=== PATIENT | female | born 1980 | race Hispanic/Latino ===

== ENCOUNTER 2018-10-01 18:18 | Emergency (ER) | payer BC, OTHER ==
[2018-10-01 20:16] LABS: Absolute Lymphocytes (CBC) 1.8 K/uL (0.7-4.9); Absolute Monocytes 0.4 K/uL (0.1-1.3); Basophils % 0.5 % (0-1.3); Eosinophils % 1.4 % (0-4.4); Hematocrit 41.3 % (36.0-45.0); Lymphocytes % 21.2 % (15.3-44.8); MPV 8.8 fL (7.6-11.3); Monocytes % 4.9 % (3.3-12.3); RBC Red Blood Cell Count 4.58 M/uL (3.86-4.86)
[2018-10-01 20:29] LABS: ALT/SGPT 26 U/L (12-78); AST/SGOT 15 U/L (15-37); Albumin 3.6 g/dL (3.4-5.0); Alkaline Phosphatase 90 U/L (45-117); BUN Blood Urea Nitrogen 17 mg/dL (7-18); Bicarbonate 26 mmol/L (21-32); Bilirubin Direct < 0.1 mg/dL (0-0.2); Bilirubin Total 0.2 mg/dL (0.2-1.0); Glucose Level 121 mg/dL (74-106); Lipase 110 U/L (73-393); Potassium 3.8 mmol/L (3.5-5.1); Protein, Total 7.1 g/dL (6.4-8.2); Sodium Level 139 mmol/L (136-145)
[2018-10-01] MEDS ORDERED: FAMOTIDINE 20 MG/2 ML VIAL IV ONE (21:12)
[2018-10-01] MEDS ORDERED: MEPERIDINE HCL 25 MG/0.5 ML ONE (21:12)
[2018-10-01] MEDS ORDERED: PROMETHAZINE 25 MG/ML VIAL ONE (21:12)
--- NOTE | 2018-10-01 21:28 | RAD REPORT ---
EXAM DESCRIPTION: RAD - Abdomen 1 View (KUB) - 10/01/2018 9:19 pm CLINICAL HISTORY: ABD PAIN Pain COMPARISON: No comparisons FINDINGS: The bowel gas pattern is non-obstructive. No evidence of free air or pneumatosis. No suspi cious calcifications. Mild lumbar levoscoliosis. Cholecystectomy clips. IMPRESSION: Negative examination.
--- NOTE | 2018-10-01 22:01 | ER ---
Nurse's Notes [facility] Name: Lexie Gray Age: 38 yrs Sex: Female : 1980 Arrival Date: 10/01/2018 Time: 18:19 Bed 7 Private MD: Diagnosis: Abdominal and pelvic pain Presentation: 10/01 18:24 Presenting complaint: Patient states: my stomach just started hurting at 10 am this morning; i feel like my tummy is bloated; reports nausea; denies diarrhea;. Transition of care: patient was not received from another setting of care. Onset of symptoms was October 01, 2018. Risk Assessment: Do you want to hurt yourself or someone else? Patient reports no desire to harm self or others. Initial Sepsis Screen: Does the patient meet any 2 criteria? No. Patient's initial sepsis screen is negative. Does the patient have a suspected source of infection? No. Patient's initial sepsis screen is negative. Care prior to arrival: None. 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 - Social history:: Smoking status: Patient/guardian denies using tobacco. - Ebola Screening: : No symptoms or risks identified at this time. Screenin:00 Abuse screen: Denies threats or abuse. Nutritional screening: No deficits noted. tl2 Tuberculosis screening: No symptoms or risk factors identified. Fall Risk None identified. Assessment: 20:00 General: Appears in no apparent distress. uncomfortable, Behavior is calm, cooperative, tl2 appropriate for age. Pain: Complains of pain in abdomen and abdomen diffusely Pain does not radiate. Neuro: Level of Consciousness is awake, alert, obeys commands, Oriented to person, place, time, situation. Cardiovascular: Denies chest pain. Respiratory: Airway is patent Respiratory effort is even, unlabored, Respiratory pattern is regular, symmetrical. GI: Abdomen is round distended, Bowel sounds present X 4 quads. Abd is soft Abdomen is tender to palpation in right upper quadrant and left upper quadrant Reports bloating. : No signs and/or symptoms were reported regarding the genitourinary system. Derm: Skin is pink, warm \T\ dry. Vital Signs: 18:27 BP 127 / 76; Pulse 94; Resp 18; Temp 97.6(TE); Pulse Ox 100% on R/A; Weight 96.16 kg; ss Height 5 ft. 0 in. (152.40 cm); Pain 10/10; 19:30 BP 113 / 72; Pulse 96; Resp 18; Temp 98.1; Pulse Ox 98% on R/A; lp1 21:14 BP 114 / 69; Pulse 78; Resp 18; Pulse Ox 100% on R/A; tl2 22:50 BP 115 / 50; Pulse 83; Resp 18; Pulse Ox 100% ; Pain 2/10; tl2 18:27 Body Mass Index 41.40 (96.16 kg, 152.40 cm) ED Course: 18:19 Patient arrived in ED. as 18:26 Triage completed. ss 18:28 Arm band placed on left wrist. ss 19:38 Alejandro Chaney PA is PHCP. jr8 19:38 Natanael Villeda MD is Attending Physician. jr8 20:00 Patient has correct armband on for positive identification. Placed in gown. Bed in low tl2 position. Call light in reach. Side rails up X 1. Adult w/ patient. 20:00 Inserted saline lock: 22 gauge in right antecubital area, using aseptic technique. tl2 Blood collected. 20:00 No provider procedures requiring assistance completed. tl2 20:50 Shelly Manzo, CHANDU is Primary Nurse. tl2 21:19 XRAY KUB In Process Unspecified. EDMS 22:00 René Marley MD is Referral Physician. jr8 23:09 IV discontinued, intact, bleeding controlled, No redness/swelling at site. Pressure tl2 dressing applied. Administered Medications: 21:08 Drug: Demerol 25 mg Route: IVP; Site: right antecubital; tl2 22:00 Follow up: Response: No adverse reaction; Pain is decreased tl2 21:08 Drug: Promethazine 12.5 mg Route: IVP; Site: right antecubital; tl2 22:00 Follow up: Response: No adverse reaction; Nausea is decreased tl2 21:09 Drug: Pepcid 20 mg Route: IVP; Site: right antecubital; tl2 22:00 Follow up: Response: No adverse reaction; Pain is decreased tl2 Outcome: 22:00 Discharge ordered by MD. sung 23:09 Discharged to home ambulatory, with family. tl2 23:09 Condition: stable 23:09 Discharge instructions given to patient, family, Instructed on discharge instructions, follow up and referral plans. medication usage, Demonstrated understanding of instructions, follow-up care, medications, Prescriptions given X 3. 23:12 Patient left the ED. tl2 Signatures: Dispatcher [employer] Nelly Andujar Shelby, RN RN ss Agatha Porras RN RN lp1 Alejandro Chaney PA PA jr8 Shelly Manzo RN RN tl2 Corrections: (The following items were deleted from the chart) 18:28 18:27 Pulse 94bpm; Resp 18bpm; Pulse Ox 100% RA; Temp 97.6F Temporal; 96.16 kg; Height ss 5 ft. 0 in.; BMI: 41.4; Pain 10/10; ss 23:08 20:00 BP 115 / 50; Pulse 83bpm; Resp 18bpm; Pulse Ox 100%; Pain 2/10; tl2 tl2
--- NOTE | 2018-10-01 22:01 | EDPHYS ---
Physician Documentation [facility] Name: Lexie Gray Age: 38 yrs Sex: Female : 1980 Arrival Date: 10/01/2018 Time: 18:19 Bed 7 Private MD: ED Physician Natanael Villeda HPI: 10/01 21:57 This 38 yrs old Female presents to ER via Ambulatory with complaints of jr8 Abdominal Distention, Abdominal Pain. 21:57 The patient presents with abdominal pain that is diffuse. Onset: The symptoms/episode jr8 began/occurred acutely, today. The symptoms do not radiate. Associated signs and symptoms: none. The symptoms are described as burning, dull. Modifying factors: The symptoms are alleviated by nothing, the symptoms are aggravated by food. Severity of pain: At its worst the pain was moderate in the emergency department the pain is unchanged. The patient has experienced similar episodes in the past, a few times. The patient has not recently seen a physician. Stated that she has had this in the past. Nothing emergent noted on past labs and imaging per patient. Stated that she has gastritis and IBS. Could not tolerate pain . 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 - Social history:: Smoking status: Patient/guardian denies using tobacco. - Ebola Screening: : No symptoms or risks identified at this time. ROS: 21:57 Eyes: Negative for injury, pain, redness, and discharge, ENT: Negative for injury, jr8 pain, and discharge, Neck: Negative for injury, pain, and swelling, Cardiovascular: Negative for chest pain, palpitations, and edema, Respiratory: Negative for shortness of breath, cough, wheezing, and pleuritic chest pain, Back: Negative for injury and pain, MS/Extremity: Negative for injury and deformity, Skin: Negative for injury, rash, and discoloration, Neuro: Negative for headache, weakness, numbness, tingling, and seizure. 21:57 Abdomen/GI: Positive for abdominal pain, abdominal distension, Negative for nausea, vomiting, and diarrhea, abdominal cramps, anorexia, dysphagia, hematemesis, black/tarry stool, rectal pain, rectal bleeding, bowel incontinence, flatulence. Exam: 21:57 Eyes: Pupils equal round and reactive to light, extra-ocular motions intact. Lids and jr8 lashes normal. Conjunctiva and sclera are non-icteric and not injected. Cornea within normal limits. Periorbital areas with no swelling, redness, or edema. ENT: Nares patent. No nasal discharge, no septal abnormalities noted. Tympanic membranes are normal and external auditory canals are clear. Oropharynx with no redness, swelling, or masses, exudates, or evidence of obstruction, uvula midline. Mucous membranes moist. Neck: Trachea midline, no thyromegaly or masses palpated, and no cervical lymphadenopathy. Supple, full range of motion without nuchal rigidity, or vertebral point tenderness. No Meningismus. Cardiovascular: Regular rate and rhythm with a normal S1 and S2. No gallops, murmurs, or rubs. Normal PMI, no JVD. No pulse deficits. Respiratory: Lungs have equal breath sounds bilaterally, clear to auscultation and percussion. No rales, rhonchi or wheezes noted. No increased work of breathing, no retractions or nasal flaring. Back: No spinal tenderness. No costovertebral tenderness. Full range of motion. Skin: Warm, dry with normal turgor. Normal color with no rashes, no lesions, and no evidence of cellulitis. MS/ Extremity: Pulses equal, no cyanosis. Neurovascular intact. Full, normal range of motion. Neuro: Awake and alert, GCS 15, oriented to person, place, time, and situation. Cranial nerves II-XII grossly intact. Motor strength 5/5 in all extremities. Sensory grossly intact. Cerebellar exam normal. Normal gait. 21:57 Abdomen/GI: Inspection: obese Bowel sounds: active, all quadrants, Palpation: soft, in all quadrants, mild abdominal tenderness, in the abdomen diffusely, mass, is not appreciated, rebound tenderness, is not appreciated, voluntary guarding, is not appreciated, involuntary guarding, is not appreciated, no appreciated organomegaly, Indicators: McBurney's point is not tender, Hobson's sign is negative, Rovsing's sign is negative, Liver: tenderness, is not appreciated. Vital Signs: 18:27 BP 127 / 76; Pulse 94; Resp 18; Temp 97.6(TE); Pulse Ox 100% on R/A; Weight 96.16 kg; ss Height 5 ft. 0 in. (152.40 cm); Pain 10/10; 19:30 BP 113 / 72; Pulse 96; Resp 18; Temp 98.1; Pulse Ox 98% on R/A; lp1 21:14 BP 114 / 69; Pulse 78; Resp 18; Pulse Ox 100% on R/A; tl2 22:50 BP 115 / 50; Pulse 83; Resp 18; Pulse Ox 100% ; Pain 2/10; tl2 18:27 Body Mass Index 41.40 (96.16 kg, 152.40 cm) ss MDM: 19:39 Patient medically screened. jr8 21:59 Data reviewed: vital signs, nurses notes, lab test result(s), radiologic studies, plain jr8 films, and as a result, I will discharge patient. Data interpreted: Pulse oximetry: on room air is 100 %. Interpretation: normal. Counseling: I had a detailed discussion with the patient and/or guardian regarding: the historical points, exam findings, and any diagnostic results supporting the discharge/admit diagnosis, lab results, radiology results, the need for outpatient follow up, a family practitioner, a state manager, to return to the emergency department if symptoms worsen or persist or if there are any questions or concerns that arise at home. Response to treatment: the patient's symptoms have markedly improved after treatment. Special discussion: Based on the patient's Hx, exam, and Dx evaluation, there is no indication for emergent surgery or inpatient Tx. It is understood by the patient/guardian that if the Sx's persist or worsen they need to return immediately for re-evaluation. 10/01 19:38 Order name: Basic Metabolic Panel; Complete Time: 20:45 10/01 19:38 Order name: CBC with Diff; Complete Time: 20:45 10/01 19:38 Order name: Creatinine for Radiology; Complete Time: 20:45 10/01 19:38 Order name: Hepatic Function; Complete Time: 20:45 10/01 19:38 Order name: Lipase; Complete Time: 20:45 10/01 21:05 Order name: XRAY KUB; Complete Time: 21:45 10/01 19:38 Order name: IV Saline Lock; Complete Time: 20:49 jr8 10/01 19:38 Order name: Labs collected and sent; Complete Time: 20:49 8 Administered Medications: 21:08 Drug: Demerol 25 mg Route: IVP; Site: right antecubital; tl2 22:00 Follow up: Response: No adverse reaction; Pain is decreased tl2 21:08 Drug: Promethazine 12.5 mg Route: IVP; Site: right antecubital; tl2 22:00 Follow up: Response: No adverse reaction; Nausea is decreased tl2 21:09 Drug: Pepcid 20 mg Route: IVP; Site: right antecubital; tl2 22:00 Follow up: Response: No adverse reaction; Pain is decreased tl2 Disposition: 10/02 15:00 Co-signature as Attending Physician, Natanael Villeda MD I agree with the assessment and rafal plan of care. Disposition: 10/01/18 22:00 Discharged to Home. Impression: Abdominal and pelvic pain. - Condition is Stable. - Discharge Instructions: Abdominal Pain, Adult. - Prescriptions for Bentyl 20 mg Oral Tablet - take 1 tablet by ORAL route every 6 hours As needed; 20 tablet. Zofran 4 mg Oral Tablet - take 1 tablet by ORAL route every 12 hours As needed; 20 tablet. Tramadol 50 mg Oral Tablet - take 1 tablet by ORAL route every 8 hours as needed; 12 tablet. - Medication Reconciliation Form, Thank You Letter, Antibiotic Education, Prescription Opioid Use form. - Follow up: Private Physician; When: 2 - 3 days; Reason: Recheck today's complaints, Continuance of care, Re-evaluation by your physician. Follow up: René Marley MD; When: 2 - 3 days; Reason: Recheck today's complaints, Continuance of care, Re-evaluation by your physician. - Problem is new. - Symptoms have improved. Signatures: Dispatcher [employer] EDNatanael Meeks MD MD cha Smirch, Shelby, RN RN Alejandro Kumar PA PA [facility] Shelly Manzo RN RN tl2 Corrections: (The following items were deleted from the chart) 10/01 23:11 19:38 Urine Dipstick-Ancillary ordered. jr8 23:11 19:38 Urine Test ordered. jr8 tl2 23:12 22:00 10/01/2018 22:00 Discharged to Home. Impression: Abdominal and pelvic pain. tl2 Condition is Stable. Forms are Medication Reconciliation Form, Thank You Letter, Antibiotic Education, Prescription Opioid Use. Follow up: Private Physician; When: 2 - 3 days; Reason: Recheck today's complaints, Continuance of care, Re-evaluation by your physician. Follow up: René Marley; When: 2 - 3 days; Reason: Recheck today's complaints, Continuance of care, Re-evaluation by your physician. Problem is new. Symptoms have improved. jr8
[2018-10-01 23:25] VITALS: TEMP 98.1
[2018-10-01 23:26] VITALS: O2SAT 100
[2018-10-01 23:28] VITALS: BP 115/50
== END 2018-10-01 23:12 | disposition home or self-care (01) ==
LOC: ER 18:18
DX: R10.9 Unspecified abdominal pain (principal); R10.2 Pelvic and perineal pain
CPT/HCPCS: 36415; 74018; 80048; 80076; 83690; 85025; 96374; 96375; 99284; J2175; J2550

== ENCOUNTER 2019-04-12 10:31 | Emergency (ER) | payer BC ==
--- OUTSIDE RECORDS SUMMARY | 2019-04-12 10:33 | XMS REPORT ---
:1980 [facility] Address [address] [place] [address] Care Team Providers Name Role Phone Unavailable Unavailable Unavailable Payers Payer Name Policy Type Policy Number Effective Date Expiration Date Problems This patient has no known problems. Allergies, Adverse Reactions, Alerts Allergy Name Allergy Status Severity Reaction(s) Onset Inactive Treating Comments Type Date Date Clinician gasper DA Active U 2018-12 00:00:0 0 Medications This patient has no known medications. Results Test Description Test Time Test Comments Text Results Atomic Results Result Comments SURGICAL 2019-01-26 RUN SPECIMENS 14:45:00 DATE: 01/26/19 Zulay IRELAND *LIVE * PAGE 1 RUN TIME: 1445 Specimen Inquiry RUN USER: INTERFACE ALLIE ENT: NAIF SINGH LOC: YENNY U #: [id number] AGE/SX: 38/F ROOM: RE01/22/19[facility] DR: Derek Garcia MD : 78 BED: DIS: STATUS: [facility] [place] TLOC: SPEC #: [id number] RECD: 01/22/19 STATUS: [facility] #: [id number] JONG: 01/22/19 [facility] DR: Derek Garcia MD ENTERED: 01/22/19 SP TYPE: SURG OTHR DR: ORDERED: PATHGM4/2, PATH SPEC, H E STAIN/2 HISTOLOGY: TISSUE ID BLK PCS [place] LEV / PROCEDURE DISPOSITION ____ ___ ___ ___ ___ ANTRUM BIOPSY A 1 3 1 GE JUNCTION B 1 3 1 TISSUES: A. ANTRUM BIOPSY - Antrum Bx B. GASTRO-ESOPHAGEAL JUNCTION BIOPSY - GE Junction CLINICAL HISTORY GERD FINAL DIAGNOSIS A-ANTRUM, BIOPSY: - Antral and oxyntic type gastric mucosa with minimal chronic inflammation. - Negative for H. pylori organisms. B-GE JUNCTION, BIOPSY: - Squamous mucosa with mild to moderate chronic inflammation, occasional eosinophils and reactive epithelial changes. - Focal pancreatic acinar cell heterotopia. - Negative for intestinal metaplasia. GROSS DESCRIPTION A-ANTRUM: Two pieces of tissue which measure 2 mm each. Entirely submitted in a single cassette. B-GE JUNCTION: Three pieces of tissue which measure 2-3 mm each. Entirely submitted in a single cassette. RAB/eb MICROSCOPIC DESCRIPTION Microscopic performed. ------ Signed SIGNATURE ON FILE Carly Chavez MD 01/26/19 1445 END OF REPORT SURGICAL 2019-01-26 RUN SPECIMENS 14:45:00 DATE: 01/27/19 Zulay IRELAND *LIVE * PAGE 1 RUN TIME: 1438 Specimen Inquiry RUN USER: INTERFACE ALLIE ENT: NAIF SINGH LOC: YENNY U #: [id number] AGE/SX: 38/F ROOM: RE01/22/19REG DR: Derek Garcia MD : 78 BED: DIS: STAT[place]: [facility] [place] TLOC: SPEC #: [id number] RECD: 01/22/19 STATUS: [facility] #: [id number] JONG: 01/22/19 [facility] [address]: Derek Garcia MD ENTERED: 01/22/19 SP TYPE: SURG OTHR DR: ORDERED: PATHGM4/2, PATH SPEC, H E STAIN/2 HISTOLOGY: TISSUE ID BLK PCS [place] LEV / PROCEDURE DISPOSITION ____ ___ ___ ___ ___ ANTRUM BIOPSY A 1 3 1 GE JUNCTION B 1 3 1 TISSUES: A. ANTRUM BIOPSY - Antrum Bx B. GASTRO-ESOPHAGEAL JUNCTION BIOPSY - GE Junction ADDENDUM FINDINGS Addendum #1 Entered: 01/27/19-3091 This addendum is being issued to comment on the diagnosis for specimen (B), the GE junction biopsy. The findings of this biopsy are not entirely specific. However, they appear to be compatible with the clinical impression of reflux esophagitis (as noted in the endoscopic report). No morphologic evidence of eosinophilic esophagitis is identified. No intestinal metaplasia is identified. The original diagnosis is unchanged. Addendum Signed SIGNATURE ON FILE Carly Chavez MD 01/27/19 1438 CLINICAL HISTORY GERD FINAL DIAGNOSIS A-ANTRUM, BIOPSY : - Antral and oxyntic type gastric mucosa with minimal chronic inflammation. - Negative for H. pylori organisms. B-GE JUNCTION, BIOPSY: - Squamous mucosa with mild to moderate chronic inflammation, occasional eosinophils and reactive epithelial changes. - Focal pancreatic acinar cell heterotopia. - Negative for intestinal metaplasia. CONTINUED ON NEXT PAGE RUN DATE: 01/27/19 Zulay IRELAND *LIVE* PAGE 2 RUN TIME: 1438 Specimen Inquiry RUN USER: INTERFACE SPEC #: [id number] PATIENT: NAIF SINGH # [id number] (Continued) ------- GROSS DESCRIPTION A-ANTRUM: Two pieces of tissue which measure 2 mm each. Entirely submitted in a single cassette. B-GE JUNCTION: Three pieces of tissue which measure 2-3 mm each. Entirely submitted in a single cassette. RAB/eb MICROSCOPIC DESCRIPTION Microscopic performed. ------ Signed SIGNATURE ON Carly Wood Tabatha FORMAN 01/26/19 1445 END OF REPORT UR HCG QUAL 2019-01-22 06:25:00 Test Item Value Reference Range Comments UR HCG QUAL (test code=[id number]) NEGATIVE NEGATIVE
[2019-04-12] MEDS ORDERED: METOCLOPRAMIDE 10 MG/2mL INJ ONE (11:31)
[2019-04-12] MEDS ORDERED: DIPHENHYDRAMINE 50 MG/ML VIAL ONE (11:32)
[2019-04-12] MEDS ORDERED: KETOROLAC 30 MG/ML INJ ONE (11:32)
--- NOTE | 2019-04-12 11:43 | RAD REPORT ---
EXAM DESCRIPTION: CT - CTHCSPWOC - 04/12/2019 11:33 am CLINICAL HISTORY: Trauma, head and neck injury. PAIN COMPARISON: No comparisons TECHNIQUE: Axial 5 mm thick images of the head were obtained. Axial 2 mm thick images of the cervical spine were obtained with sagittal and coronal reconstruction images generated and reviewed. All CT scans are performed using dose optimization technique as appropriate and may include automated exposure control or mA/KV adjustment according to patient size. FINDINGS: CT HEAD WITHOUT CONTRAST: No acute hemorrhage, hydrocephalus or extra-axial collection is identified.No areas of brain edema or midline shift. The paranasal sinuses and mastoids are clear.The calvarium is intact. CT CERVICAL SPINE WITHOUT CONTRAST: No fracture or subluxation.Mild spondylosis at C5-6.No prevertebral soft tissues swelling is identifi ed. IMPRESSION: No acute intracranial or cervical spine findings.
--- NOTE | 2019-04-12 12:26 | EDPHYS ---
Physician Documentation [facility] Name: Lexie Gray Age: 39 yrs Sex: Female : 1980 Arrival Date: 04/12/2019 Time: 10:34 Bed 15 Private MD: ED Physician Natanael Villeda HPI: 04/12 12:18 This 39 yrs old Female presents to ER via Ambulatory with complaints of pm1 Headache. 12:18 The patient complains of pain to the right base of the skull. The patient describes the pm1 headache as aching. Onset: The symptoms/episode began/occurred 3 day(s) ago. Associated signs and symptoms: Pertinent positives: pain to right arm. Headache History: Denies prior headaches. The symptoms are alleviated by nothing. the symptoms are aggravated by movement, of right arm and neck. Moving head to right side. The patient has not experienced similar symptoms in the past. The patient has not recently seen a physician. 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 - Social history:: Smoking status: Patient uses tobacco products, smokes one-half pack cigarettes per day. - Ebola Screening: : No symptoms or risks identified at this time. ROS: 12:18 Constitutional: Negative for fever, chills, and weight loss, Eyes: Negative for injury, pm1 pain, redness, and discharge, ENT: Negative for injury, pain, and discharge. 12:18 Cardiovascular: Negative for chest pain, palpitations, and edema, Respiratory: Negative for shortness of breath, cough, wheezing, and pleuritic chest pain, Abdomen/GI: Negative for abdominal pain, nausea, vomiting, diarrhea, and constipation, Back: Negative for injury and pain, MS/Extremity: Negative for injury and deformity, Skin: Negative for injury, rash, and discoloration. 12:18 Neck: Positive for pain with movement, of the right trapezius, Negative for bony tenderness. 12:18 Neuro: Positive for headache, of the right base of the skull. Exam: 12:18 Constitutional: This is a well developed, well nourished patient who is awake, alert, pm1 and in no acute distress. Head/Face: Normocephalic, atraumatic. Chest/axilla: Normal chest wall appearance and motion. Nontender with no deformity. No lesions are appreciated. 12:18 Cardiovascular: Regular rate and rhythm with a normal S1 and S2. No gallops, murmurs, or rubs. Normal PMI, no JVD. No pulse deficits. Respiratory: Lungs have equal breath sounds bilaterally, clear to auscultation and percussion. No rales, rhonchi or wheezes noted. No increased work of breathing, no retractions or nasal flaring. Abdomen/GI: Soft, non-tender, with normal bowel sounds. No distension or tympany. No guarding or rebound. No evidence of tenderness throughout. 12:18 Skin: Warm, dry with normal turgor. Normal color with no rashes, no lesions, and no evidence of cellulitis. MS/ Extremity: Pulses equal, no cyanosis. Neurovascular intact. Full, normal range of motion. 12:18 Neck: External neck: tenderness, that is moderate, of the right trapezius, C-spine: vertebral tenderness, is not appreciated, Trachea: is midline with no obvious abnormalities, ROM/movement: Meningeal signs: are not present, Kernig's sign is negative, Brudzinski's sign is negative, nuchal rigidity, is not appreciated, Neck and base of right skull pain reproduced with moving head to the right and forward. 12:18 Back: normal spinal alignment noted, muscle spasm, is appreciated in the right trapezius, neck pain reproduced with movement of right arm. 12:18 Neuro: Orientation: is normal, Mentation: is normal, Cranial nerves: CN II- XII are normal as tested, Motor: is normal, moves all fours, Sensation: is normal, no obvious gross deficits, Gait: is steady, at a normal pace, without difficulty. Vital Signs: 10:45 BP 148 / 88; Pulse 86; Resp 16; Temp 97.9(TE); Pulse Ox 100% on R/A; Weight 96.16 kg; hb Height 5 ft. (152.40 cm); Pain 10/10; 12:19 BP 139 / 99; Pulse 105; Resp 17 S; Pulse Ox 100% on R/A; ca1 12:50 BP 132 / 93; Pulse 92; Resp 17 S; Pulse Ox 100% on R/A; ca1 10:45 Body Mass Index 41.40 (96.16 kg, 152.40 cm) hb MDM: 11:13 Patient medically screened. [facility] 12:15 Data reviewed: vital signs. pm1 12:15 Data interpreted: Pulse oximetry: on room air is 100 %. Interpretation: normal. pm1 Counseling: I had a detailed discussion with the patient and/or guardian regarding: the historical points, exam findings, and any diagnostic results supporting the discharge/admit diagnosis, radiology results, the need for outpatient follow up, to return to the emergency department if symptoms worsen or persist or if there are any questions or concerns that arise at home. 04/12 12:14 Order name: Urine Dipstick--Ancillary (enter results) 04/12 12:14 Order name: Urine --Ancillary (enter results) bd 04/12 11:22 Order name: CT Head C Spine; Complete Time: 11:51 pm1 04/12 11:22 Order name: IV Saline Lock; Complete Time: 12:20 pm1 04/12 11:22 Order name: Urine Dipstick-Ancillary (obtain specimen); Complete Time: 12:21 pm1 04/12 11:22 Order name: Urine Test (obtain specimen); Complete Time: 12:20 pm1 Administered Medications: 12:00 Drug: TORadol - Ketorolac 15 mg Route: IVP; Site: left antecubital; ca1 12:46 Follow up: Response: No adverse reaction; Pain is decreased ca1 12:05 Drug: Benadryl 25 mg Route: IVP; Site: left antecubital; ca1 12:46 Follow up: Response: No adverse reaction; Pain is decreased ca1 12:08 Drug: Reglan 10 mg Route: IVP; Site: left antecubital; ca1 12:46 Follow up: Response: No adverse reaction; Pain is decreased ca1 Disposition: 04/13 06:48 Co-signature as Attending Physician, Natanael Villeda MD I agree with the assessment and [facility] plan of care. Disposition: 04/12/19 12:25 Discharged to Home. Impression: Radiculopathy, cervical region, Muscle spasm of back. - Condition is Stable. - Discharge Instructions: Cervical Radiculopathy, General Headache Without Cause, Muscle Cramps and Spasms. - Prescriptions for Cyclobenzaprine 10 mg Oral Tablet - take 1 tablet by ORAL route every 8 hours As needed; 30 tablet. Diclofenac Sodium 75 mg Oral Tablet, Delayed Release (E.C.) - take 1 tablet by ORAL route 2 times per day As needed; 30 tablet. Tylenol- Codeine #3 300-30 mg Oral Tablet - take 2 tablets by ORAL route every 6 hours As needed; 20 tablet. - Medication Reconciliation Form, Thank You Letter, Antibiotic Education, Prescription Opioid Use, Work release form form. - Follow up: Emergency Department; When: As needed; Reason: Worsening of condition. Follow up: Private Physician; When: 2 - 3 days; Reason: Recheck today's complaints, Continuance of care, Re-evaluation by your physician. - Problem is new. - Symptoms have improved. Signatures: Dispatcher [employer] EDMS Natanael Villeda MD MD cha Marinas, Patrick, ALTERATIONS MANAGER ALTERATIONS MANAGER pm1 Jane Nagel RN RN Melony Pearce RN RN ca1 Corrections: (The following items were deleted from the chart) 04/12 12:54 12:25 04/12/2019 12:25 Discharged to Home. Impression: Radiculopathy, cervical region; ca1 Muscle spasm of back. Condition is Stable. Forms are Medication Reconciliation Form, Thank You Letter, Antibiotic Education, Prescription Opioid Use. Follow up: Emergency Department; When: As needed; Reason: Worsening of condition. Follow up: Private Physician; When: 2 - 3 days; Reason: Recheck today's complaints, Continuance of care, Re-evaluation by your physician. Problem is new. Symptoms have improved. pm1
--- NOTE | 2019-04-12 12:26 | ER ---
Nurse's Notes [facility] Name: Lexie Gray Age: 39 yrs Sex: Female : 1980 Arrival Date: 04/12/2019 Time: 10:34 Bed 15 Private MD: Diagnosis: Radiculopathy, cervical region;Muscle spasm of back Presentation: 04/12 10:43 Presenting complaint: Right sided headache that radiates to right neck and arm x 3 hb days. Denies nausea/photosensitivity/fever. Transition of care: patient was not received from another setting of care. Onset of symptoms was April 09, 2019. Risk Assessment: Do you want to hurt yourself or someone else? Patient reports no desire to harm self or others. Initial Sepsis Screen: Does the patient meet any 2 criteria? No. Patient's initial sepsis screen is negative. Does the patient have a suspected source of infection? No. Patient's initial sepsis screen is negative. Care prior to arrival: Medication(s) given: Motrin 800mg and Tylenol 500mg at 0400 today. 10:43 Method Of Arrival: Ambulatory hb 10:43 Acuity: RADHA 3 hb Triage Assessment: 11:06 Headache History: Denies prior headaches. General: Appears in no apparent distress. ca1 comfortable, Behavior is calm, cooperative, appropriate for age. Pain: Also complains of no other associated symptoms. Pain: Complains of pain in neck and scalp and right base of the skull and right occipital area and right temporal area and right side of the back of head and right frontal area Pain currently is 10 out of 10 on a pain scale. Quality of pain is described as throbbing, pulsating, Pain began 2-3 days ago. Is continuous. 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 - Social history:: Smoking status: Patient uses tobacco products, smokes one-half pack cigarettes per day. - Ebola Screening: : No symptoms or risks identified at this time. Screenin:03 Abuse screen: Denies threats or abuse. Denies injuries from another. Nutritional ca1 screening: No deficits noted. Tuberculosis screening: No symptoms or risk factors identified. Fall Risk None identified. Assessment: 11:03 General: Appears in no apparent distress. comfortable, Behavior is calm, cooperative, ca1 appropriate for age. Pain: Complains of pain in right frontal area, right side of the back of head, right temporal area, right occipital area and right base of the skull Pain radiates to neck Pain currently is 10 out of 10 on a pain scale. Quality of pain is described as throbbing, pulsating, Pain began 2-3 days ago. Is continuous. Neuro: Level of Consciousness is awake, alert, obeys commands, Oriented to person, place, time, situation, Appropriate for age. Neuro: Denies dizziness. Cardiovascular: Heart tones S1 S2 present Capillary refill < 3 seconds Patient's skin is warm and dry. Respiratory: Airway is patent Respiratory effort is even, unlabored, Respiratory pattern is regular, symmetrical, Breath sounds are clear bilaterally. GI: Abdomen is round non-distended, Bowel sounds present X 4 quads. Abd is soft and non tender X 4 quads. Patient currently denies nausea. : No deficits noted. No signs and/or symptoms were reported regarding the genitourinary system. EENT: No deficits noted. No signs and/or symptoms were reported regarding the EENT system. Derm: Skin is intact, is healthy with good turgor, Skin is pink, warm \T\ dry. Musculoskeletal: Circulation, motion, and sensation intact. Capillary refill < 3 seconds, Range of motion: intact in all extremities. 12:19 Reassessment: Patient appears in no apparent distress at this time. Patient and/or ca1 family updated on plan of care and expected duration. Pain level reassessed. Patient is alert, oriented x 3, equal unlabored respirations, skin warm/dry/pink. Patient states feeling better. Vital Signs: 10:45 BP 148 / 88; Pulse 86; Resp 16; Temp 97.9(TE); Pulse Ox 100% on R/A; Weight 96.16 kg; hb Height 5 ft. (152.40 cm); Pain 10/10; 12:19 BP 139 / 99; Pulse 105; Resp 17 S; Pulse Ox 100% on R/A; ca1 12:50 BP 132 / 93; Pulse 92; Resp 17 S; Pulse Ox 100% on R/A; ca1 10:45 Body Mass Index 41.40 (96.16 kg, 152.40 cm) hb ED Course: 10:34 Patient arrived in ED. rg4 10:44 Triage completed. hb 10:45 Arm band placed on. hb 10:56 Melony Pearce RN is Primary Nurse. ca1 10:57 Carmine Bingham NP is PHCP. pm1 10:57 Natanael Villeda MD is Attending Physician. pm1 11:03 Patient has correct armband on for positive identification. Bed in low position. Call ca1 light in reach. Side rails up X 1. Pulse ox on. NIBP on. Door closed. Noise minimized. Visitors limited. Lights dimmed. Warm blanket given. 11:03 No provider procedures requiring assistance completed. ca1 11:33 CT Head C Spine In Process Unspecified. EDMS 12:02 Missed attempt(s): 18 gauge in right antecubital area. Bleeding controlled, band aid bb applied, catheter tip intact. Inserted saline lock: 22 gauge in left antecubital area, using aseptic technique. 12:51 IV discontinued, intact, bleeding controlled, No redness/swelling at site. Pressure ca1 dressing applied. Administered Medications: 12:00 Drug: TORadol - Ketorolac 15 mg Route: IVP; Site: left antecubital; ca1 12:46 Follow up: Response: No adverse reaction; Pain is decreased ca1 12:05 Drug: Benadryl 25 mg Route: IVP; Site: left antecubital; ca1 12:46 Follow up: Response: No adverse reaction; Pain is decreased ca1 12:08 Drug: Reglan 10 mg Route: IVP; Site: left antecubital; ca1 12:46 Follow up: Response: No adverse reaction; Pain is decreased ca1 Outcome: 12:25 Discharge ordered by MD. pm1 12:51 Discharged to home ambulatory, with family. ca1 12:51 Condition: stable 12:51 Discharge instructions given to patient, Instructed on discharge instructions, follow up and referral plans. no drinking with medication, no driving heavy equipment, medication usage, Demonstrated understanding of instructions, follow-up care, medications, Prescriptions given X 3. 12:54 Patient left the ED. ca1 Signatures: Dispatcher [employer] EDNV Polina Rendon RN RN bb Marinas, Patrick, NP CELL ATTENDANT pm1 Jane Nagel RN RN hb Garcia, Rubi rg4 Melony Pearce RN RN ca1 Corrections: (The following items were deleted from the chart) 12:51 12:19 Reassessment: Patient appears in no apparent distress at this time. Patient ca1 and/or family updated on plan of care and expected duration. Pain level reassessed. Patient is alert, oriented x 3, equal unlabored respirations, skin warm/dry/pink. ca1
[2019-04-12 13:02] LABS: Urine Blood NEGATIVE (NEG); Urine Glucose NEGATIVE (NEG); Urine Protein NEGATIVE (NEG); Urine Specific Gravity 1.025 (1.005-1.030)
[2019-04-12 19:43] VITALS: TEMP 97.9; O2SAT 100
[2019-04-12 19:46] VITALS: BP 132/93
== END 2019-04-12 12:54 | disposition home or self-care (01) ==
LOC: ER 10:31
DX: M54.12 Radiculopathy, cervical region (principal); M62.830 Muscle spasm of back; F17.210 Nicotine dependence, cigarettes, uncomplicated; Z88.1 Allergy status to other antibiotic agents
CPT/HCPCS: 81025; 81003; 70450; 72125; 96375; 96374; 99284; J2765; J1200

== ENCOUNTER 2021-10-30 18:26 | Emergency (ER) | payer OTHER, SELFPAY ==
--- OUTSIDE RECORDS SUMMARY | 2021-10-30 18:29 | XMS REPORT | Continuity of Care Document ---
:1980 Author Organization [facility] t Address [address] [place] [address] Care Team Providers Name Role Phone Pcp, Does Not Have A Primary Care Physician EUGENE Attending Clinician Unavailable Dominguez ARECHIGA Attending Clinician Eugene FORMAN Attending Clinician Payers Payer Name Policy Type Policy Number Effective Date Expiration Date Dede [place] [facility] [id number] 2021 2021 00:00:00 [facility] 00:00:00 Problems Condition Condition Condition Status Onset Resolution Last Treating Co mments Source Name Details Category Date Date Treatment Clinician Date Breakthrou Breakthrou Disease Active 2017- U nivers gh gh 5-10 ity of bleeding bleeding 00:00: [place] with IUD with IUD 00 Medica l Branch Smoker Smoker Disease Active Univers 5-10 ity of 00:00: [place] 00 Medical [facility] Presence Presence Disease Active 2016-05 Unive rs of of 13.5 of of 13.5 -28 it y of mg mg 00:00: [place] levonorges levonorges 00 Me dical trel-relea trel-relea Br anch sing sing intrauteri intrauteri ne device ne device (IUD) (IUD) Morbid Morbid Disease Active 2016-05 Univers obesity obesity 1-28 ity of 00:00: [place] 00 Medical Branch False False Disease Active Univers positive positive 4-15 ity of syphilis syphilis 00:00: [place] serology serology 00 Medica l Branch Obesity Obesity Disease Active Univers 3-25 ity of 00:00: [place] 00 Medical Branch Hiatal Hiatal Disease Active Univers hernia hernia 3-25 ity of 00:00: [place] 00 Medical Branch Gestationa Gestationa Disease Active U nivers l diabetes l diabetes 7-20 it y of mellitus mellitus 00:00: [place] 00 Medical Branch Allergies, Adverse Reactions, Alerts Allergy Allergy Status Severity Reaction(s) Onset Inactive Treating Comm ents Source Name Type Date Date Clinician vangie DA Active U [facility] 8 Yeoman 00:00: [facility] 00 [facility] Azithrom Propensi Active Rash Univer s ycin ty to 7-20 ity of adverse 00:00: [place] reaction 00 Medical s to Branch drug AZITHROM DRUG Active Rash Univers YCIN INGREDI 7-20 ity of 00:00: [place] 00 Medical Branch Social History Social Habit Start Date Stop Date Quantity Comments Source History of tobacco Cigarette Smoker University of use [facility] History SDOH University o f Alcohol Std Drinks [place] [facility] [place] History SDOH University o f Alcohol Binge [facility] al Branch History SDOH University o f Alcohol Comment [place] [facility] Exposure to Not sure University of SARS-CoV-2 (event) [facility] Alcohol intake 2021-07-19 2021-07-19 0 /d University of 00:00:00 00:00:00 [facility] History SDOH 2021-07-19 2021-07-19 1 University o f Alcohol Frequency 00:00:00 00:00:00 [facility] Branch Cigarettes smoked 2017-10-02 2017-10-02 Univers ity of current (pack per 00:00:00 00:00:00 [facility] ) - Reported Branch Tobacco use and 2017-10-02 2017-10-02 Never used Universit y of exposure 00:00:00 00:00:00 [facility] Sex Ass[birth year] At [birth year] Universit y of 00:00:00 00:00:00 [facility] Smoking Status Start Date Stop Date Source Current every day smoker 2017-10-02 00:00:00 Uni versity of [facility] Medications Ordered Filled Start Stop Current Ordering Indication Dosage Frequency Signature Comments Components Source Medication Medication Date Date Medication? Clinician (SIG) Name Name KodakIDAMARCO ANTONIO 2021- No [id number] 500mg Take 1 Univers LE 500 mg 07-30-15 tablet by ity of tablet 00:00: 04:59 mouth [place] 00 :00 every 12 Medical (twelve) Branch hours for 7 days. metroNIDAZO 2021- No [id number] 500mg Take 1 Univers LE 500 mg 07-30-15 tablet by ity of tablet 00:00: 04:59 mouth [place] 00 :00 every 12 Medical (twelve) Branch hours for 7 days. fluconazole 2021- No [id number] 150mg Take 1 Univers 150 mg 07-30-08 tablet by ity of tablet 00:00: 05:59 [place] now for 1 Medical dose. Branch metroNIDAZO 2021- No [id number] 2000mg Take 4 Univers LE 500 mg 07-20-26 tablets by ity of tablet 00:00: 05:59 [place] now for 1 Medical dose. Do Branch not drink alcohol while taking this medication . acetaminoph 2021- No Take by U nivers en 2-24 02-24 mouth ity of (TYLENOL) 15:45: 00:00 [place] 6 [place] 325 mg 13 :00 (six) Medical tablet hours as Branch needed. naproxen 2021- No Take by Univ ers sodium 2-24 02-24 mouth. ity of (ALEVE 15:45: 00:00 [place] ORAL) 04 :00 Medical Branch GABAPENTIN Yes Take by Uni vers ORAL 2-24 mouth. ity of 14:34: [address] Branch montelukast Yes Take by Un demario sodium 2-24 mouth. ity of (SINGULAIR 14:34: [place] ORAL) Medical Branch GABAPENTIN Yes Take by Uni vers ORAL 2-24 mouth. ity of 14:34: [place] [address] Medical Branch montelukast Yes Take by Un demario sodium 2-24 mouth. ity of (SINGULAIR 14:34: [place] ORAL) 50 Medical Branch GABAPENTIN Yes Take by Uni vers ORAL 2-24 mouth. ity of 14:34: [place] 50 Medical Branch montelukast Yes Take by Un demario sodium 2-24 mouth. ity of (SINGULAIR 14:34: [place] ORAL) 50 Medical Branch GABAPENTIN Yes Take by Uni vers ORAL 2-24 mouth. ity of 14:34: [place] 50 Medical Branch montelukast Yes Take by Un demario sodium 2-24 mouth. ity of (SINGULAIR 14:34: [place] ORAL) 50 [facility] [place] pantoprazol Yes Univer s e 40 mg EC 2-02 ity of tablet 00:00: 00 [facility] [place] pantoprazol Yes Univer s e 40 mg EC 2-02 ity of tablet 00:00: [facility] pantoprazol Yes Univer s e 40 mg EC 2-02 ity of tablet 00:00: [facility] pantoprazol Yes Univer s e 40 mg EC 2-02 ity of tablet 00:00: [place] 00 [facility] [place] phentermine 2018-0 2021- No Unive rs 37.5 mg 307-19 ity of tablet 00:00: 00:00 [place] 00 :00 Medical Branch zolpidem Yes Univers (AMBIEN) 10 2-19 ity of mg tablet 00:00: [facility] [place] zolpidem Yes Univers (AMBIEN) 10 2-19 ity of mg tablet 00:00: [place] [facility] [place] zolpidem Yes Univers (AMBIEN) 10 2-19 ity of mg tablet 00:00: [facility] [place] zolpidem Yes Univers (AMBIEN) 10 2-19 ity of mg tablet 00:00: [facility] Vital Signs Vital Name Observation Time Observation Value Comments Source Systolic blood 2021-07-19 20:32:00 138 mm[Hg] Univer sity of pressure [facility] Diastolic blood 2021-07-19 20:32:00 92 mm[Hg] Unive rsity of pressure [facility] Heart rate 2021-07-19 20:32:00 73 /min [facility] Body temperature 2021-07-19 20:32:00 36.72 [facility] [place] Respiratory rate 2021-07-19 20:32:00 18 /min [facility] [place] Body height 2021-07-19 20:32:00 154.9 cm [facility] Body weight 2021-07-19 20:32:00 90.039 kg [facility] BMI 2021-07-19 20:32:00 37.51 kg/m2 [facility] Procedures This patient has no known procedures. Encounters Start End Encounter Admission Attending Care Care Encounter Source Date/Time Date/Time Type Type Clinicians Facility Department ID 2022-07-22 2022-07-22 Outpatient R CHAYA GUERRERO [facility] [id number] Univers 10:00:00 10:00:00 ity [facility] 2021-08-07 2021-08-07 Outpatient CHAYA BORGES [facility] [id number] Univers 13:30:00 13:30:00 ity [facility] 2021-08-06 2021-08-06 Outpatient CHAYA BORGES [facility] [id number] Univers 10:40:00 10:40:00 [id number] ity [facility] 2021-08-06 2021-08-06 Outpatient CHAYA BORGES [facility] [id number] Univers 00:00:00 00:00:00 ity [facility] 2021-07-30 2021-07-30 [facility] [id number] Univers 00:00:00 00:00:00 Management Sara CANCINO [id number] ity of WOMEN'S [id number] [facility] [id number] [address] 2021-07-30 2021-07-30 [facility] [id number] Univers 00:00:00 00:00:00 Management Sara CANCINO [id number] it[place] [id number] [place] [facility] [id number] [address] 2021-07-20 2021-07-20 Case Chaya Guerrero [facility] [id number] Univers 00:00:00 00:00:00 Management BARAK [id number] ity [id number] [facility] [id number] [address] 2021-07-19 2021-07-19 Outpatient R CHAYA GUERRERO [facility] [id number] [facility] 14:00:00 15:14:29 ity of [facility] 2021-07-19 2021-07-19 Office Chaya Guerrero [facility] [id number] Univers 14:00:00 15:14:29 Visit BARAK [id number] it y [place] [id number] [facility] [id number] [address] Results Test Description Test Time Test Comments Results Result Comments Source SURGICAL SPECIMENS 2019-01-26 14:45:00 RUN DATE: 01/26/19 [facility] *LIVE* PAGE 1 RUN TIME: 4845 Specimen Inquiry RUN USER: INTERFACE PAT IENT: NAIF SINGH LOC: YENNY #: [id number] AGE/SX: 38/F ROOM: RE01/22/19[facility] DR: Derek Garcia MD : 78 BED: DIS: STATUS: [facility] TLOC: SPEC #: [id number] RECD: 01/22/19 STATUS: [facility] #: [id number] JONG: 01/22/[address] [facility] [address]: Derek Garcia MD ENTERED: 01/22/19 [...] a single cassette. RAB/eb MICROSCOPIC DESCRIPTION Microscopic performed.--------- ------- Signed SIGNATURE ON Carly Wood Tabatha FORMAN 01/26/19 1445 END OF REPORT SURGICAL SPECIMENS 2019-01-26 14:45:00 RUN DATE: 01/27/19 [facility] *LIVE* PAGE 1 RUN TIME: 1438 Specimen Inquiry RUN USER: INTERFACE BHARAT IENT: NAIF SINGH LOC: YENNY U #: [id number] AGE/SX: 38/F ROOM: RE01/22/19[facility]ELI DR: Derek Garcia MD : 78 BED: DIS: STATUS: DEP SDC TLOC: SPEC #: [id number] RECD: 01/22/19 STATUS: [facility] #: [id number] JONG: 01/22/[address] [facility] [address]: Derek Garcia MD ENTERED: 01/22/19 [...] [place] ADDENDUM FINDINGS Addendum #1 Entered: 01/27/19 This addendum is being issued to comment [...] 1438 CLINICAL HISTORY GERD FINAL DIAGNOSIS A-ANTRUM, BIOPSY: [...] TIME: 1438 Specimen Inquiry RUN USER: INTERFACE ELLEN C #: [id number] PATIENT: NAIF SINGH #[id number] (Continued)-------- -------- GROSS DESCRIPTION A-ANTRUM: Two pieces of tissue which measure 2 mm each. Entirely submitted in a single cassette. B-GE JUNCTION: Three pieces of tissue which measure 2-3 mm each. Entirely submitted in a single cassette. RAB/eb MICROSCOPIC DESCRIPTION Microscopic performed.--------- ------- Signed SIGNATURE ON FILE Carly Chavez MD 01/26/19 1445 END OF REPORT UR HCG QUAL 2019-01-22 06:25:00 Test Item Value Reference Range Interpretation Comme nts UR HCG QUAL (test code = HCGQLU) NEGATIVE NEGATIVE
[2021-10-30] MEDS ORDERED: predniSONE 20 MG TAB ONE (19:07)
[2021-10-30] MEDS ORDERED: HYDROCODONE/CHLORPHEN 5 ML/OSYR ONE (19:07)
[2021-10-30] MEDS ORDERED: IPRATROPIUM BROM 0.5MG/2.5ML ONE (19:07)
[2021-10-30] MEDS ORDERED: ALBUTEROL 2.5 MG/3 ML NEB SOL ONE (19:07)
--- NOTE | 2021-10-30 19:38 | RAD REPORT ---
EXAM DESCRIPTION: RAD - Chest Pa And Lat (2 Views) - 10/30/2021 7:05 pm CLINICAL HISTORY: COUGH Chest pain. COMPARISON: Abdomen 1 View (KUB) dated 10/01/2018; CHEST SINGLE VIEW dated 08/20/2013 FINDINGS: Mild interstitial prominence is seen suggesting a viral infection. The heart is upper limi t normal in size. No displaced fractures. Moderate dextroscoliosis of the thoracic spine.
--- NOTE | 2021-10-30 20:22 | ER ---
Nurse's Notes [facility] Name: Lexie Gray Age: 41 yrs Sex: Female : 1980 Arrival Date: 10/30/2021 Time: 18:27 Bed 6 Private MD: Diagnosis: Acute bronchitis, unspecified;Otitis media, unspecified, bilateral Presentation: 10/30 18:35 Chief complaint: Patient states: I have had cough, congestion, and a soar throat since jb4 Friday. This morning I started having a constant chest pain with SOB. Coronavirus screen: At this time, the client does not indicate any symptoms associated with coronavirus-19. Ebola Screen: No symptoms or risks identified at this time. Initial Sepsis Screen: Does the patient meet any 2 criteria? No. Patient's initial sepsis screen is negative. Does the patient have a suspected source of infection? No. Patient's initial sepsis screen is negative. Risk Assessment: Do you want to hurt yourself or someone else? Patient reports no desire to harm self or others. Onset of symptoms was October 30, 2021. Transition of care: patient was not received from another setting of care. 18:35 Method Of Arrival: Ambulatory jb4 18:35 Acuity: RADHA 3 jb4 Triage Assessment: 18:40 General: Appears in no apparent distress. uncomfortable, obese, Behavior is calm, bp cooperative, appropriate for age. Pain: Complains of pain in chest Aggravated by COUGH. EENT: No deficits noted. Neuro: No deficits noted. Cardiovascular: Reports chest pain. Respiratory: Reports shortness of breath cough that is. GI: No signs and/or symptoms were reported involving the gastrointestinal system. : No signs and/or symptoms were reported regarding the genitourinary system. Derm: No deficits noted. Musculoskeletal: No deficits noted. Historical: - Allergies: 18:36 Zithromax; jb4 - PMHx: 18:36 None; jb4 - PSHx: 18:36 Cholecystectomy; jb4 - Immunization history:: Adult Immunizations up to date. - Social history:: Smoking status: Patient reports the use of cigarette tobacco products, denies chronic smoking, but will smoke occasionally. Screenin:40 Abuse screen: Denies threats or abuse. Denies injuries from another. Nutritional bp screening: No deficits noted. Tuberculosis screening: No symptoms or risk factors identified. Fall Risk None identified. Assessment: 18:40 General: SEE TRIAGE NOTE. bp 19:48 Reassessment: No changes from previously documented assessment. General: "I feel the as6 same. The medicine isn't working" . Pain: Complains of pain in neck and chest. Respiratory: Reports cough that is Respiratory effort is even, unlabored, Respiratory pattern is regular, symmetrical. 20:40 Reassessment: Patient is alert, oriented x 3, equal unlabored respirations, skin bb warm/dry/pink. pt verbalized understanding of and agrees to plan of care discharge instructions given pt ambulated with steady gait to exit accompanied by family. Vital Signs: 18:35 BP 122 / 84; Pulse 91; Resp 16; Temp 96.8(TE); Pulse Ox 98% on R/A; Weight 86.18 kg jb4 (R); Height 5 ft. 0 in. (152.40 cm) (R); Pain 8/10; 19:12 BP 108 / 58; Pulse 86; Resp 16; Pulse Ox 100% ; bp 19:37 BP 108 / 58; Pulse 93; Resp 18; Pulse Ox 99% ; mw1 18:35 Body Mass Index 37.11 (86.18 kg, 152.40 cm) jb4 ED Course: 18:27 Patient arrived in ED. rg4 18:28 Natanael Peñaloza PA is PHCP. cp 18:28 Moisés Dinero MD is Attending Physician. cp 18:32 Carlitos Burnham, CHANDU is Primary Nurse. bp 18:36 Triage completed. jb4 18:36 Arm band placed on right wrist. jb4 18:40 Patient has correct armband on for positive identification. Bed in low position. Call bp light in reach. Side rails up X2. Pulse ox on. NIBP on. 19:04 COVID-19 SARS RT PCR (Document "Date of Onset" if Symptomatic) Sent. tw5 19:05 Strep Sent. tw5 19:05 Influenza Screen (a \\T\\ B) Sent. tw5 19:07 XRAY Chest Pa And Lat (2 Views) In Process Unspecified. EDMS 20:40 No provider procedures requiring assistance completed. Patient did not have IV access bb during this emergency room visit. Administered Medications: 19:11 Drug: predniSONE 60 mg Route: PO; bp 19:12 Drug: Albuterol - atroVENT (ipratropium) (3:1) (2.5 mg - 0.5 mg) 3 ml Route: Nebulizer; bp 19:12 Drug: Tussionex Pennkinetic ER (chlorpheniramine-hydrocodone) Suspension 5 ml Route: PO;bp Medication: 18:40 VIS not applicable for this client. bp Outcome: 20:21 Discharge ordered by MD. cp 20:41 Discharged to home ambulatory, with family. bb 20:41 Condition: stable 20:41 Discharge instructions given to patient, Instructed on discharge instructions, follow up and referral plans. medication usage, Demonstrated understanding of instructions, follow-up care, medications, Prescriptions given X 5 20:42 Patient left the ED. bb Signatures: Dispatcher [employer] EDMS Polina Rendon RN RN bb Natanael Peñaloza, Nayely Weathers cp rg4 Luis E Schmitz RN RN jb4 Baltazar Nevarez mw1 Carlitos Burnham RN RN Preeti Gorman tw5 Suleman Plata RN RN as6
--- NOTE | 2021-10-30 20:22 | EDPHYS ---
Physician Documentation [facility] Name: Lexie Gray Age: 41 yrs Sex: Female : 1980 Arrival Date: 10/30/2021 Time: 18:27 Bed 6 Private MD: ED Physician Moisés Dinero HPI: 10/30 18:50 This 41 yrs old Female presents to ER via Ambulatory with complaints of Chest cp Pain, Cough, Breathing Difficulty. 18:50 The patient or guardian reports cough. cp 18:50 Onset: The symptoms/episode began/occurred 3 day(s) ago, and became worse this morning. cp Associated signs and symptoms: Pertinent positives: chest pain, with cough, earache, sore throat, shortness of breath, Pertinent negatives: diarrhea, fever, vomiting. Severity of symptoms: in the emergency department the symptoms are unchanged despite home interventions. Historical: - Allergies: 18:36 Zithromax; jb4 - PMHx: 18:36 None; jb4 - PSHx: 18:36 Cholecystectomy; jb4 - Immunization history:: Adult Immunizations up to date. - Social history:: Smoking status: Patient reports the use of cigarette tobacco products, denies chronic smoking, but will smoke occasionally. ROS: 19:00 Constitutional: Negative for body aches, chills, fever, poor PO intake. cp 19:00 Eyes: Negative for injury, pain, redness, and discharge. cp 19:00 ENT: Positive for ear pain, sore throat, Negative for drainage from ear(s), difficulty swallowing, difficulty handling secretions. 19:00 Cardiovascular: Positive for chest pain, with cough, Negative for edema, palpitations. 19:00 Respiratory: Positive for cough, "sounds productive", shortness of breath. 19:00 Abdomen/GI: Negative for abdominal pain, vomiting, diarrhea, constipation. 19:00 Back: Negative for pain at rest, pain with movement. 19:00 : Negative for urinary symptoms. 19:00 Neuro: Negative for altered mental status, dizziness, headache, syncope, weakness. 19:00 All other systems are negative. Exam: 19:05 Constitutional: The patient appears in no acute distress, alert, awake, cp non-diaphoretic, non-toxic, well developed, well nourished, overweight 19:05 Head/Face: Normocephalic, atraumatic. cp 19:05 Eyes: Periorbital structures: appear normal, Conjunctiva: normal, no exudate, no injection, Sclera: no appreciated abnormality, Lids and lashes: appear normal, bilaterally. 19:05 ENT: External ear(s): are unremarkable, Ear canal(s): are normal, clear, TM's: bulging, is not appreciated, bilaterally, erythema, that is mild, bilaterally, Nose: is normal, no drainage, Mouth: Lips: moist, Oral mucosa: moist, Posterior pharynx: Airway: no evidence of obstruction, patent, Tonsils: no enlargement, no exudate, erythema, that is mild, exudate, is not appreciated. 19:05 Neck: ROM/movement: is normal, is supple, without pain, no range of motions limitations, no meningismus, Lymph nodes: no appreciated lymphadenopathy. 19:05 Chest/axilla: Inspection: normal. 19:05 Cardiovascular: Rate: normal, Rhythm: regular. 19:05 Respiratory: the patient does not display signs of respiratory distress, Respirations: normal, no use of accessory muscles, no retractions, labored breathing, is not present, Breath sounds: bronchial sounds, that are mild, are heard diffusely, decreased breath sounds, are not appreciated, + upper airway congestion. wheezing: expiratory that is mild, is heard diffusely. 19:05 Abdomen/GI: Inspection: abdomen appears normal, Palpation: abdomen is soft and non-tender, in all quadrants. 19:05 Back: pain, is absent, ROM is normal. Vital Signs: 18:35 BP 122 / 84; Pulse 91; Resp 16; Temp 96.8(TE); Pulse Ox 98% on R/A; Weight 86.18 kg jb4 (R); Height 5 ft. 0 in. (152.40 cm) (R); Pain 8/10; 19:12 BP 108 / 58; Pulse 86; Resp 16; Pulse Ox 100% ; bp 19:37 BP 108 / 58; Pulse 93; Resp 18; Pulse Ox 99% ; mw1 18:35 Body Mass Index 37.11 (86.18 kg, 152.40 cm) jb4 MDM: 18:41 Patient medically screened. cp 20:20 Data reviewed: vital signs, nurses notes, lab test result(s), radiologic studies, plain cp films. 20:20 Differential diagnosis: bronchitis, flu, URI, COVID-19, pneumonia. Test interpretation: cp by ED physician or midlevel provider: plain radiologic studies. Counseling: I had a detailed discussion with the patient and/or guardian regarding: the historical points, exam findings, and any diagnostic results supporting the discharge/admit diagnosis, lab results, radiology results, to return to the emergency department if symptoms worsen or persist or if there are any questions or concerns that arise at home. 10/30 18:43 Order name: COVID-19 SARS RT PCR (Document "Date of Onset" if Symptomatic); Complete cp Time: 20:17 10/30 20:17 Interpretation: Reviewed. 10/30 18:43 Order name: Strep; Complete Time: 19:56 10/30 19:57 Interpretation: Reviewed. 10/30 18:43 Order name: Influenza Screen (a \\T\\ B); Complete Time: 19:56 10/30 19:57 Interpretation: Reviewed. 10/30 18:43 Order name: XRAY Chest Pa And Lat (2 Views); Complete Time: 19:56 10/30 19:57 Interpretation: Report reviewed. 10/30 19:47 Order name: Throat Culture EDMS Administered Medications: 19:11 Drug: predniSONE 60 mg Route: PO; bp 19:12 Drug: Albuterol - atroVENT (ipratropium) (3:1) (2.5 mg - 0.5 mg) 3 ml Route: Nebulizer; bp 19:12 Drug: Tussionex Pennkinetic ER (chlorpheniramine-hydrocodone) Suspension 5 ml Route: PO;bp Disposition Summary: 10/30/21 20:21 Discharge Ordered Location: Home cp Problem: new cp Symptoms: have improved cp Condition: Stable cp Diagnosis - Acute bronchitis, unspecified cp - Otitis media, unspecified, bilateral cp Followup: cp - With: Private Physician - When: 2 - 3 days - Reason: Worsening of condition Discharge Instructions: - Discharge Summary Sheet cp - Acute Bronchitis, Adult cp - Otitis Media, Adult cp Forms: - Medication Reconciliation Form cp - Thank You Letter cp - Antibiotic Education cp - Prescription Opioid Use cp Prescriptions: - Bromfed DM 2-30-10 mg/5 mL Oral syrup - take 10 milliliter by ORAL route every 6 hours; 200 milliliter; Refills: 0, cp Product Selection Permitted - albuterol sulfate 90 mcg/actuation Inhalation HFA aerosol inhaler - inhale 1 puff by INHALATION route every 4-6 hours; 1 Inhaler; Refills: 0, cp Product Selection Permitted - Augmentin 875-125 mg Oral Tablet - take 1 tablet by ORAL route every 12 hours for 10 days; 20 tablet; Refills: 0, cp Product Selection Permitted - Albuterol Sulfate 2.5 mg /3 mL (0.083 %) Inhalation Solution for Nebulization - inhale 1 unit by NEBULIZATION route every 8 hours As needed; 1 box; Refills: 0, cp Product Selection Permitted - Medrol (Josué) 4 mg Oral Tablets, Dose Pack - take 1 tablet by ORAL route as directed - follow package instructions; 1 cp packet; Refills: 0, Product Selection Permitted Addendum: 10/31/2021 23:58 Co-signature as Attending Physician, Moisés Dinero MD. r n Signatures: Dispatcher [employer] EDMS Moisés Dinero MD MD rn Natanael Peñaloza PA PA Luis E Schmidt, RN RN jb4 Carlitos Burnham RN RN bp
[2021-10-30 20:52] VITALS: TEMP 96.8
[2021-10-30 20:54] VITALS: BP 108/58
[2021-10-30 20:56] VITALS: O2SAT 99
== END 2021-10-30 20:42 | disposition home or self-care (01) ==
LOC: ER 18:26
DX: J20.9 Acute bronchitis, unspecified (principal); H66.93 Otitis media, unspecified, bilateral; Z72.0 Tobacco use; Z88.1 Allergy status to other antibiotic agents; Z20.822 Contact with and (suspected) exposure to COVID-19
CPT/HCPCS: 71046; 87070; 87081; 87804; 94640; 99284; J7512; U0003

== ENCOUNTER 2022-02-25 17:38 | Emergency (ER) | payer SELFPAY ==
--- OUTSIDE RECORDS SUMMARY | 2022-02-25 17:40 | XMS REPORT | Continuity of Care Document ---
:1980 Author Organization [facility] t Address [address] [place] [address] Care Team Providers Name Role Phone Universal Neel SCALES Primary Care Physician [phone] CHAYA GUERRERO Attending Clinician Unavailable Dominguez ARECHIGA, Sara Attending Clinician Chaya Guerrero MD Attending Clinician Payers Payer Name Policy Type Policy Number Effective Date Expiration Date Dede [place] [facility] [id number] 2021 2021 00:00:00 SELECT 00:00:00 Problems Condition Condition Condition Status Onset Resolution Last Treating Co mments Source Name Details Category Date Date Treatment Clinician Date Breakthrou Breakthrou Disease Active 2018-0 U nivers gh gh 5-10 ity of bleeding bleeding 00:00: [place] with IUD with IUD 00 Medica l Branch Smoker Smoker Disease Active 2018-0 Univers 5-10 ity of 00:00: [place] 00 [...] Active Univers 3-25 ity of 00:00: [place] [facility] Hiatal Hiatal Disease Active Univers hernia hernia 3-25 ity of 00:00: [place] 00 Medical Branch Gestationa Gestationa Disease Active U nivers l diabetes l diabetes 7-20 it y of mellitus mellitus 00:00: [place] 00 Medical Branch Allergies, Adverse Reactions, Alerts Allergy Allergy Status Severity Reaction(s) Onset Inactive Treating Comm ents Source Name Type Date Date Clinician vangie DA Active U [facility] 8 [place] 00:00: [facility] 00 [facility] Azithrom Propensi Active Rash Univer s ycin ty to 7-20 ity of adverse 00:00: [place] reaction 00 Medical s to Branch drug AZITHROM DRUG Active Rash Univers YCIN INGREDI 7-20 ity of 00:00: [place] 00 Medical Branch Social History Social Habit Start Date Stop Date Quantity Comments Source History of tobacco Cigarette Smoker University of use [facility] History SDOH University o f Alcohol Std Drinks [facility] History SDCT University o f Alcohol Binge [facility] al Branch History [facility] University o f Alcohol Comment [place] Med ical Branch Exposure to Not sure University of SARS-CoV-2 (event) [facility] Alcohol intake 2021-07-19 2021-07-19 0 /d University of 00:00:00 00:00:00 [facility] History SDOH 2021-07-19 2021-07-19 1 University o f Alcohol Frequency 00:00:00 00:00:00 [facility] Cigarettes smoked 2017-10-02 2017-10-02 Univers ity of current (pack per 00:00:00 00:00:00 [facility]) - Reported Branch Tobacco use and 2017-10-02 2017-10-02 Never used Universit y of exposure 00:00:00 00:00:00 [facility] Sex Ass[birth year] At [birth year] [facility] y of 00:00:00 00:00:00 [facility] Smoking Status Start Date Stop Date Source Current every day smoker 2017-10-02 00:00:00 Uni versity of [facility] Medications Ordered Filled Start Stop Current Ordering Indication Dosage Frequency Signature Comments Components Source Medication Medication Date Date Medication? Clinician (SIG) Name Name TAKE ONE 2022-0 No 40 (1) 8-29 TABLET(S) 00:00: BY MOUTH 00 ONCE A DAY. TAKE ONE 2022-0 No 300 (1) 8-29 CAPSULE(S) 00:00: BY MOUTH 00 THREE TIMES A DAY. TAKE ONE 2022-0 No 40 (1) 8-29 TABLET(S) 00:00: BY MOUTH 00 ONCE A DAY. TAKE ONE 2022-0 No 300 (1) 8-29 CAPSULE(S) 00:00: BY MOUTH 00 THREE TIMES A DAY. TAKE 1 TAB 2022-0 No 50 4 TIMES A 8-16 DAY 00:00: NEEDED 00 TAKE 1 TAB 2022-0 No 50 4 TIMES A 8-16 DAY 00:00: NEEDED 00 TAKE 1 2022-0 No [id number] TABLET 8-16 TWICE DAILY 00:00: WITH FOOD. 00 TAKE 1 TAB 2022-0 No 50 4 TIMES A 8-16 DAY 00:00: NEEDED 00 TAKE 1 TAB 2022-0 No 50 4 TIMES A 8-16 DAY 00:00: NEEDED 00 TAKE 1 2022-0 No [id number] TABLET 8-16 TWICE DAILY 00:00: WITH FOOD. 00 TAKE 1 TAB 2022-0 No 50 4 TIMES A 8-16 DAY 00:00: NEEDED 00 TAKE 1 TAB 2022-0 No 50 4 TIMES A 8-16 DAY 00:00: NEEDED 00 TAKE 1 2022-0 No [id number] TABLET 8-16 TWICE DAILY 00:00: WITH FOOD. 00 TAKE 1 TAB 2022-0 No 50 4 TIMES A 8-16 DAY 00:00: NEEDED 00 TAKE 1 TAB 2022-0 No 50 4 TIMES A 8-16 DAY 00:00: NEEDED 00 TAKE 1 2022-0 No [id number] TABLET 8-16 TWICE DAILY 00:00: WITH FOOD. 00 TAKE 1 2022-0 No [id number] TABLET 8-11 TWICE DAILY 00:00: WITH FOOD. 00 TAKE 1 2022-0 No [id number] TABLET 8-11 TWICE DAILY 00:00: WITH FOOD. 00 TAKE 1 2021-0 No [id number] TABLET 8-11 TWICE DAILY 00:00: WITH FOOD. 00 TAKE 1 2021-0 No [id number] TABLET 8-11 TWICE DAILY 00:00: WITH FOOD. 00 TAKE 1 0 No [id number] TABLET 8-11 TWICE DAILY 00:00: WITH FOOD. 00 metroNIDAZO 2021- No [id number] 500mg Take 1 Univers LE 500 mg 3- tablet by ity of tablet 00:00: 04:59 mouth [place] 00 :00 every 12 Medical (twelve) Branch hours for 7 days. metroNIDAZO 2021- No [id number] 500mg Take 1 Univers LE 500 mg 3- tablet by ity of tablet 00:00: 04:59 mouth [place] 00 :00 every 12 Medical (twelve) Branch hours for 7 days. fluconazole 2021- No [id number] 150mg Take 1 Univers 150 mg 07-30- tablet by ity of tablet 00:00: 05:59 [place] now for 1 Medical dose. Branch metroNIDAZO 2021- No [id number] 2000mg Take 4 Univers LE 500 mg 07-20- tablets by ity of tablet 00:00: 05:59 [place] now for 1 Medical dose. Do Branch not drink alcohol while taking this medication . acetaminoph 2021- No Take by Un demario en 2-24 02-24 mouth ity of (TYLENOL) 15:45: 00:00 every 6 [place] 325 mg 13 :00 (six) Medical tablet hours as Branch needed. naproxen 2021- No Take by Unive rs sodium 2-24 02-24 mouth. ity of (ALEVE 15:45: 00:00 [place] ORAL) 04 :00 Medical Branch GABAPENTIN Yes Take by Univ ers ORAL 2-24 mouth. ity of 14:34: [place] 50 Medical Branch montelukast Yes Take by Uni vers sodium 2-24 mouth. ity of (SINGULAIR 14:34: [place] ORAL) 50 Medical Branch GABAPENTIN Yes Take by Univ ers ORAL 2-24 mouth. ity of 14:34: [address] montelukast Yes Take by Uni vers sodium 2-24 mouth. ity of (SINGULAIR 14:34: [place] ORAL) [address] [place] [address] GABAPENTIN Yes Take by Univ ers ORAL 2-24 mouth. ity of 14:34: [address] montelukast Yes Take by Uni vers sodium 2-24 mouth. ity of (SINGULAIR 14:34: [place] ORAL) [address] [place] [address] GABAPENTIN Yes Take by Univ ers ORAL 2-24 mouth. ity of 14:34: [address] montelukast Yes Take by Uni vers sodium 2-24 mouth. ity of (SINGULAIR 14:34: [place] ORAL) [address] [place] [address] pantoprazol Yes Univer s e 40 mg EC 2-02 ity of tablet 00:00: [address] pantoprazol Yes Univer s e 40 mg EC 2-02 ity of tablet 00:00: [address] pantoprazol Yes Univer s e 40 mg EC 2-02 ity of tablet 00:00: [address] pantoprazol Yes Univer s e 40 mg EC 2-02 ity of tablet 00:00: [address] phentermine 2017- Unive rs 37.5 mg 307-19 ity of tablet 00:00: 00:00 [place] 00 :00 [facility] zolpidem Yes Univers (AMBIEN) 10 2-19 ity of mg tablet 00:00: [place] [facility] zolpidem Yes Univers (AMBIEN) 10 2-19 ity of mg tablet 00:00: [place] 00 [facility] zolpidem Yes Univers (AMBIEN) 10 2-19 ity of mg tablet 00:00: [place] [facility] zolpidem Yes Univers (AMBIEN) 10 2-19 ity of mg tablet 00:00: [address] Vital Signs Vital Name Observation Time Observation Value Comments Source Systolic blood 2021-07-19 20:32:00 138 mm[Hg] Univer sity of pressure [facility] Diastolic blood 2021-07-19 20:32:00 92 mm[Hg] Unive rsity of pressure [facility] Heart rate 2021-07-19 20:32:00 73 /min [facility] Body temperature 2021-07-19 20:32:00 [facility].72 [facility] Res[facility] 2021-07-19 20:32:00 18 /[facility] Body height 2021-07-19 20:32:00 154.9 cm [facility] Body weight 2021-07-19 20:32:00 90.039 kg [facility] BMI 2021-07-19 20:32:00 37.51 kg/m2 [facility] BP Systolic 2022-01-29 09:58:00 138 mm[Hg] BP Diastolic 2022-01-29 09:58:00 87 mm[Hg] Weight Measured 2022-01-29 09:58:00 197.40 pounds Height Measured 2022-01-29 09:58:00 60.00 inches Body Temperature 2022-01-29 09:58:00 98.10 degrees Heart Rate 2022-01-29 09:58:00 92.00 /min Respiratory Rate 2022-01-29 09:58:00 18.00 /min BP Systolic 2022-01-15 10:44:00 133 mm[Hg] BP Diastolic 2022-01-15 10:44:00 88 mm[Hg] Weight Measured 2022-01-15 10:44:00 195.80 pounds Height Measured 2022-01-15 10:44:00 60.00 inches Body Temperature 2022-01-15 10:44:00 98.40 degrees Heart Rate 2022-01-15 10:44:00 100.00 /min Respiratory Rate 2022-01-15 10:44:00 17.00 /min BP Diastolic 2022-01-14 11:01:00 90 mm[Hg] Weight Measured 2022-01-14 11:01:00 196.40 pounds Height Measured 2022-01-14 11:01:00 60.00 inches Body Temperature 2022-01-14 11:01:00 98.20 degrees Heart Rate 2022-01-14 11:01:00 82.00 /min Respiratory Rate 2022-01-14 11:01:00 18.00 /min BP Systolic 2022-01-14 11:01:00 143 mm[Hg] BP Systolic 2022-01-08 08:02:00 127 mm[Hg] BP Diastolic 2022-01-08 08:02:00 85 mm[Hg] Weight Measured 2022-01-08 08:02:00 192.80 pounds Height Measured 2022-01-08 08:02:00 60.00 inches Body Temperature 2022-01-08 08:02:00 97.90 degrees Heart Rate 2022-01-08 08:02:00 86.00 /min Respiratory Rate 2022-01-08 08:02:00 16.00 /min Respiratory Rate 2022-01-03 09:46:00 24.00 /min BP Systolic 2022-01-03 09:46:00 117 mm[Hg] BP Diastolic 2022-01-03 09:46:00 80 mm[Hg] Weight Measured 2022-01-03 09:46:00 193.80 pounds Height Measured 2022-01-03 09:46:00 60.00 inches Body Temperature 2022-01-03 09:46:00 98.90 degrees Heart Rate 2022-01-03 09:46:00 77.00 /min Procedures This patient has no known procedures. Plan of Care Planned Activity Planned Date Details Comments Source Goal Plan of Care Note [code = 10307-7] Goal Plan of Care Note [code = 58585-0] Goal Plan of Care Note [code = 37112-5] Goal Plan of Care Note [code = 51913-5] Goal Plan of Care Note [code = 07834-6] Goal Plan of Care Note [code = 41073-1] Goal Plan of Care Note [code = 68072-1] Goal Plan of Care Note [code = 53054-4] Goal Plan of Care Note [code = 87107-3] Goal Plan of Care Note [code = 45360-8] Goal Plan of Care Note [code = 96039-1] Goal Plan of Care Note [code = 64548-0] Goal Plan of Care Note [code = 51808-5] Goal Plan of Care Note [code = 21075-7] Goal Plan of Care Note [code = 63341-1] Goal Plan of Care Note [code = 80771-3] Goal Plan of Care Note [code = 34994-9] Goal Plan of Care Note [code = 13187-8] Goal Plan of Care Note [code = 50578-9] Goal Plan of Care Note [code = 00208-5] Goal Plan of Care Note [code = 50540-1] Goal Plan of Care Note [code = 80190-5] Goal Plan of Care Note [code = 99524-6] Goal Plan of Care Note [code = 05352-2] Goal Plan of Care Note [code = 02332-5] Goal Plan of Care Note [code = 89141-6] Goal Plan of Care Note [code = 40332-2] Goal Plan of Care Note [code = 21304-5] Goal Plan of Care Note [code = 33123-7] Goal Plan of Care Note [code = 55080-0] Goal Plan of Care Note [code = 51189-2] Goal Plan of Care Note [code = 33945-6] Goal Plan of Care Note [code = 68744-0] Encounters Start End Encounter Admission Attending Care Care Encounter Source Date/Time Date/Time Type Type Clinicians Facility Department ID 2022-07-22 2022-07-22 Outpatient CHAYA BORGES [facility] [id number] Univers 10:00:00 10:00:00 [facility] 2022-07-22 2022-07-22 Outpatient CHAYA BORGES [facility] [id number] Univers 10:00:00 10:00:00 [facility] 2022-01-29 2022-01-29 Outpatient [id number] 00:00:00 00:00:00 Visit 9a61-9m16 t13-7h32-p -j131-516 [id number] 2022-01-15 2022-01-15 Outpatient [id number]-[id number] 00:00:00 00:00:00 Visit v764-275h 625-402c-8 -68l2-4d1 8r7-6r672c 12dd1613m t8022b 2022-01-14 2022-01-14 Outpatient [id number] 00:00:00 00:00:00 Visit 1y2z-7t9k o1g-4l7w-0 -89ef-a98 9ef-a98e76 q661v5d0p 8f9e4a 2022-01-08 2022-01-08 Outpatient [id number] 00:00:00 00:00:00 Visit 2b69-2az5 j40-1jr1-5 -5y95-385 u02-633h48 u43d7qp0i a6cc5e 2022-01-03 2022-01-03 Outpatient [id number]- [id number] [id number] 00:00:00 00:00:00 Visit 3569-4cdb 569-4cdb-9 -930a-989 [id number] 2021-08-07 2021-08-07 Outpatient CHAYA BORGES [facility] [id number] Univers 13:30:00 13:30:00 ity [facility] [place] [facility] 2021-08-07 2021-08-07 Outpatient CHAYA BORGES [facility] [id number] Univers 13:30:00 [facility] 2021-08-06 Outpatient CHAYA BORGES [facility] [id number] Univers 00:00:00 00:00:00 ity [facility] [place] [facility] 2021-07-30 2021-07-30 [facility] [id number] Univers 00:00:00 00:00:00 Management Sara CANCINO 350.1.13.10 ity of WOMEN'S 4.2.7.2.686 [facility] [id number] [address] 2021-07-30 2021-07-30 [facility] [id number] Univers 00:00:00 00:00:00 Management Sara CANCINO 350.1.13.10 ity [place] 4[place].2.686 [place] [facility] [id number] [address] 2021-07-20 2021-07-20 Case Chaya Geurrero [place] [id number] Univers 00:00:00 00:00:00 Management BAR[place] 350.1.13.10 ity [place].686 [place] [facility] [id number] [address] 2021-07-19 2021-07-19 Office Chaya Guerrero [place] 1.2.840.114 [id number] Univers 14:00:00 15:14:29 Visit BARAK 350.1.13.10 it y of WOMEN'S 4.2.7.2.686 [facility] [id number] [address] 2021-07-19 2021-07-19 Outpatient R CHAYA GUERRERO [facility] [id number] Univers 14:00:00 15:14:29 ity of [facility] 2021-07-19 2021-07-19 Outpatient R CHAYA GUERRERO [facility] [id number] Univers 14:00:00 15:14:29 ity of [facility] 2021-07-19 2021-07-19 Outpatient R CHAYA GUERRERO [facility] [id number] Univers 14:00:00 14:00:00 ity [facility] [place] [facility] 2020-08-17 2020-08-17 Outpatient R [facility] [id number] 16:00:00 16:00:00 ity [facility] [place] [facility] Results Test Description Test Time Test Comments Results Result Comments Source SURGICAL SPECIMENS 2019-01-26 14:45:00 RUN DATE: 01/26/19 Zulay IRELAND *LIVE* PAGE 1 RUN TIME: 1445 Specimen Inquiry RUN USER: INTERFACE PAT IENT: NAIF SINGH LOC: YENNY #: [id number] AGE/SX: 38/F ROOM: RE01/22/19[facility] DR: Derek Garcia MD : 78 BED: DIS: STATUS: [facility] TLOC: SPEC #: [id number] RECD: 01/22/19 STATUS: [place] AMEZQUITA #: [id number] JONG: 01/22/1935 [facility] DR: Derek Garcia MD ENTERED: 01/22/19 [...] DESCRIPTION Microscopic performed.--------- ------- Signed SIGNATURE ON Caryl Wood MD 01/26/19 1445 END OF REPORT SURGICAL SPECIMENS 2019-01-26 14:45:00 RUN DATE: 01/27/19 Zulay IRELAND *LIVE* PAGE 1 RUN TIME: 1438 Specimen Inquiry RUN USER: INTERFACE PAT IENT: NAIF SINGH LOC: YENNY Santos #: [id number] AGE/SX: 38/F ROOM: RE01/22/19[facility] DR: Derek Garcia MD : 78 BED: DIS: STATUS: [facility] TLOC: SPEC #: [id number] RECD: 01/22/19 STATUS: [place] GOINS #: [id number] JONG: 01/22/19 [facility] DR: Derek Garcia MD ENTERED: 01/22/19 [...] [place] ADDENDUM FINDINGS Addendum #1 Entered: 01/27/19-3129 This addendum is being issued to comment [...] Zulay IRELAND *LIVE* PAGE 2 RUN TIME: 143 Specimen Inquiry RUN USER: INTERFACE SPE C #: [id number] PATIENT: NAIF SINGH #[id number] (Continued)-------- -------- GROSS DESCRIPTION A-ANTRUM: Two pieces of tissue which measure 2 mm each. Entirely submitted in a single cassette. B-GE JUNCTION: Three pieces of tissue which measure 2-3 mm each. Entirely submitted in a single cassette. RAB/eb MICROSCOPIC DESCRIPTION Microscopic performed.--------- ------- Signed SIGNATURE ON FILE Carly Chavez MD 01/26/19 3121 END OF REPORT UR HCG QUAL 2019-01-22 06:25:00 Test Item Value Reference Range Interpretation Comme nts UR HCG QUAL (test code = HCGQLU) NEGATIVE NEGATIVE
[2022-02-25] MEDS ORDERED: NA CHLORIDE 0.9% 1,000 ML ONE (18:15)
[2022-02-25] MEDS ORDERED: DICYCLOMINE HCL 20 MG/2 ML AMP IM ONE (18:15)
[2022-02-25] MEDS ORDERED: ONDANSETRON 4 MG/2 ML VIAL ONE ×2 (18:15→19:37)
[2022-02-25] MEDS ORDERED: FAMOTIDINE 20 MG/2 ML VIAL IV ONE (18:15)
[2022-02-25 18:35] LABS: Urine Blood 1+ (Negative); Urine Glucose Negative (Negative); Urine Protein Negative (Negative); Urine Specific Gravity >=1.030 (1.005-1.030); Urine pH 5.5 (5.0-7.0)
[2022-02-25 18:51] LABS: Absolute Lymphocytes (CBC) 0.7 K/uL (0.7-4.9); Hematocrit 40.2 % (36.0-45.0); MCV 89.8 fL (80-100); MPV 8.9 fL (7.6-11.3); RBC Red Blood Cell Count 4.47 M/uL (3.86-4.86)
[2022-02-25 18:59] LABS: Urine Mucus 3+ /HPF (None Seen); Urine RBC <5 /HPF (None Seen)
[2022-02-25 19:03] LABS: Albumin 3.5 g/dL (3.4-5.0); Bilirubin Total 0.5 mg/dL (0.2-1.0); Protein, Total 7.2 g/dL (6.4-8.2)
[2022-02-25 19:10] LABS: Magnesium 1.9 mg/dL (1.8-2.4)
[2022-02-25] MEDS ORDERED: MORPHINE 4 MG/ML SYR ONE ×2 (19:37→20:38)
--- NOTE | 2022-02-25 20:46 | RAD REPORT ---
EXAM DESCRIPTION: CT - Abdomen Pelvis W Contrast - 02/25/2022 8:22 pm CLINICAL HISTORY: upper abdomen pain COMPARISON: CT ABD PELVIS W CONTRAST dated 12/26/2011 TECHNIQUE: Biphasic, helical CT imaging of the abdomen and pelvis was performed following 100 ml non -ionic IV contrast. No oral contrast administered. All CT scans are performed using dose optimization technique as appropriate and may include automated exposure control or mA/KV adjustment according to patient size. FINDINGS: No suspicious findings in the lung bases. The liver, spleen, and pancreas show no suspicious findings. Gallbladder is absent. No abnormal bilia ry tree dilatation. Symmetric renal function is seen with no hydronephrosis or suspicious renal mass. No pyelonephritis o r acute parenchymal process. No bladder abnormalities. No adrenal abnormalities. Normal size uterus s een with IUD well positioned in the fundal portion. No ovarian abnormality seen. No dilated bowel loops or bowel wall thickening. No evidence for appendicitis. Patient has diverticul osis that is mild. No diverticulitis or other acute GI process. No free air, free fluid or inflammato ry stranding. No hernia, mass or bulky lymphadenopathy. No suspicious bony findings. IMPRESSION: Contrast enhanced CT abdomen and pelvis showing no acute or emergent finding.
[2022-02-25] MEDS ORDERED: NA CHLORIDE 0.9% 50 ML IV ONE (20:48)
[2022-02-25] MEDS ORDERED: PROMETHAZINE INJ 25 MG/ML AMP ONE (20:48)
[2022-02-25] MEDS ORDERED: LIDOCAINE VISCOUS 2% SOLN 15 ML UDC ONE (20:56)
[2022-02-25] MEDS ORDERED: MAGNES/ALUMIN/SIMET 30ML UCUP ONE (20:56)
--- NOTE | 2022-02-25 21:12 | EDPHYS ---
Physician Documentation [facility] Name: Lxeie Gray Age: 41 yrs Sex: Female : 1980 Arrival Date: 02/25/2022 Time: 17:39 Bed 24 Private MD: ED Physician Tylor Pickard HPI: 02/25 18:10 This 41 yrs old Female presents to ER via Ambulatory with complaints of cp Abdominal Pain. 18:10 The patient presents with abdominal pain in the epigastric area. Onset: The cp symptoms/episode began/occurred today, about 1500. The symptoms do not radiate. Associated signs and symptoms: Pertinent positives: nausea, vomiting, Pertinent negatives: anorexia, constipation, diarrhea, fever, shortness of breath, vomiting blood, chest pain. The symptoms are described as like stomach being twisted. Severity of pain: in the emergency department the pain is unchanged despite home interventions. The patient has experienced similar episodes in the past, a few times. Patient reports having similar pain in the past. History of stomach ulcer with h.pylori. History of cholecystectomy . 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 - Social history:: Smoking status: Patient reports the use of cigarette tobacco products, smokes one-half pack cigarettes per day. ROS: 18:15 Constitutional: Negative for body aches, chills, fever, poor PO intake. cp 18:15 Eyes: Negative for injury, pain, redness, and discharge. cp 18:15 ENT: Negative for drainage from ear(s), ear pain, sore throat, difficulty swallowing, difficulty handling secretions. 18:15 Cardiovascular: Negative for chest pain, edema, palpitations. 18:15 Respiratory: Negative for cough, shortness of breath, wheezing. 18:15 Abdomen/GI: Positive for abdominal pain, nausea and vomiting, of the epigastric area, Negative for diarrhea, constipation, hematemesis. 18:15 Back: Negative for pain at rest, pain with movement. 18:15 : Negative for urinary symptoms. 18:15 Neuro: Negative for altered mental status, dizziness, headache, weakness. 18:15 All other systems are negative. Exam: 18:20 Head/Face: Normocephalic, atraumatic. cp 18:20 Constitutional: The patient appears in no acute distress, alert, awake, non-diaphoretic, non-toxic, well developed, well nourished, overweight 18:20 Eyes: Periorbital structures: appear normal, Conjunctiva: normal, no exudate, no injection, Sclera: no appreciated abnormality, Lids and lashes: appear normal, bilaterally. 18:20 ENT: External ear(s): are unremarkable, Nose: is normal, Mouth: Lips: moist, Oral mucosa: pink and intact, moist, Posterior pharynx: Airway: no evidence of obstruction, patent, Tonsils: are normal in appearance, erythema, is not appreciated, exudate, is not appreciated. 18:20 Chest/axilla: Inspection: normal, Palpation: is normal, no crepitus, no tenderness. 18:20 Cardiovascular: Rate: normal, Rhythm: regular, Edema: is not appreciated, JVD: is not appreciated. 18:20 Respiratory: the patient does not display signs of respiratory distress, Respirations: normal, no use of accessory muscles, no retractions, labored breathing, is not present, Breath sounds: are clear throughout, no decreased breath sounds, no stridor, no wheezing. 18:20 Abdomen/GI: Inspection: obese Bowel sounds: active, all quadrants, Palpation: soft, in all quadrants, moderate abdominal tenderness, in the epigastric area, rebound tenderness, is not appreciated, voluntary guarding, is elicited in the epigastric area. 18:20 Back: CVA tenderness, is absent. 18:20 Skin: cellulitis, is not appreciated, no rash present. 18:20 Neuro: Orientation: to person, place \T\ time. Mentation: is normal, Motor: moves all fours, strength is normal, Sensation: is normal. Vital Signs: 17:47 BP 125 / 98; Pulse 89; Resp 17; Temp 98.4; Pulse Ox 100% ; Weight 88.9 kg; Height 5 ft. ap3 0 in. (152.40 cm); Pain 8/10; 19:00 BP 123 / 68; Pulse 104; Resp 20; Pulse Ox 100% ; kb3 20:00 BP 126 / 83; Pulse 100; Resp 20; Pulse Ox 100% ; kb3 17:47 Body Mass Index 38.28 (88.90 kg, 152.40 cm) ap3 MDM: 17:56 Patient medically screened. cp 21:10 Data reviewed: vital signs, nurses notes, lab test result(s), radiologic studies, CT cp scan. 21:10 Counseling: I had a detailed discussion with the patient and/or guardian regarding: the cp historical points, exam findings, and any diagnostic results supporting the discharge/admit diagnosis, lab results, radiology results, the need for outpatient follow up, a home health occupational therapist, to return to the emergency department if symptoms worsen or persist or if there are any questions or concerns that arise at home. Response to treatment: the patient's symptoms have markedly improved after treatment. Special discussion: Based on the patient's Hx, exam, and Dx evaluation, there is no indication for emergent surgery or inpatient Tx. It is understood by the patient/guardian that if the Sx's persist or worsen they need to return immediately for re-evaluation. 02/25 18:05 Order name: CBC with Diff cp 02/25 18:05 Order name: CMP cp 02/25 18:05 Order name: Lipase cp 02/25 18:05 Order name: Urine Microscopic Only cp 02/25 18:05 Order name: Magnesium cp 02/25 18:35 Order name: Urine Dipstick-Ancillary; Complete Time: 19:19 EDMS 02/25 18:51 Order name: CBC with Automated Diff; Complete Time: 19:19 EDMS 02/25 18:59 Order name: Urine Microscopic Only; Complete Time: 19:19 EDMS 02/25 19:10 Order name: Comprehensive Metabolic Panel; Complete Time: 19:19 EDMS 02/25 19:10 Order name: Magnesium; Complete Time: 19:19 EDMS 02/25 19:10 Order name: Lipase; Complete Time: 19:19 EDMS 02/25 19:23 Order name: CT Abd/Pelvis - IV Contrast Only cp 02/25 20:47 Order name: CT; Complete Time: 20:50 EDMS 02/25 20:51 Interpretation: Report reviewed. cp 02/25 18:05 Order name: IV Saline Lock; Complete Time: 19:03 cp 02/25 18:05 Order name: Labs collected and sent; Complete Time: 19:03 cp 02/25 18:05 Order name: Urine Dipstick-Ancillary (obtain specimen); Complete Time: 19:03 cp 02/25 18:05 Order name: Urine Test (obtain specimen); Complete Time: 19:03 cp Administered Medications: 18:15 Drug: Pepcid (famotidine) 20 mg Route: IVP; Site: right hand; kb3 18:15 Drug: Zofran (Ondansetron) 4 mg Route: IVP; Site: right hand; kb3 18:15 Drug: Bentyl (dicyclomine) 20 mg Route: IM; Site: left ventrogluteal; kb3 18:15 Drug: NS 0.9% 1000 ml Route: IV; Rate: 1000 ml/hr; Site: right hand; kb3 19:33 Follow up: Response: No adverse reaction; IV Status: Completed infusion; IV Intake: kb3 1000ml 19:44 Drug: morphine 4 mg Route: IVP; Infused Over: 4 mins; Site: right hand; kb3 20:42 Follow up: Response: No adverse reaction; Pain is unchanged, physician notified kb3 19:44 Drug: Zofran (Ondansetron) 4 mg Route: IVP; Site: right hand; kb3 20:42 Follow up: Response: No adverse reaction; Nausea is decreased kb3 20:42 Drug: morphine 4 mg Route: IVP; Infused Over: 4 mins; Site: right hand; kb3 21:15 Follow up: Response: No adverse reaction; Pain is decreased kb3 20:54 Drug: Promethazine 12.5 mg Route: IVP; Infused Over: 30 mins; Site: right hand; kb3 21:43 Follow up: Response: No adverse reaction; Nausea is decreased kb3 21:15 Drug: GI Cocktail without - (Maalox Suspension 30 ml, Lidocaine Liquid 2 % 15 kb3 ml) Route: PO; 21:35 Follow up: Response: No adverse reaction; Pain is decreased kb3 21:43 Not Given (Pt left feeling much betterr): Dilaudid (HYDROmorphone) 1 mg IVP once kb3 Disposition Summary: 02/25/22 21:12 Discharge Ordered Location: Home cp Problem: new cp Symptoms: have improved cp Condition: Stable cp Diagnosis - Epigastric pain cp Followup: cp - With: René Marley MD - When: 2 - 3 days - Reason: Recheck today's complaints Discharge Instructions: - Discharge Summary Sheet cp - Abdominal Pain, Adult cp - Gastroesophageal Reflux Disease, Adult cp Forms: - Medication Reconciliation Form cp - Thank You Letter cp - Antibiotic Education cp - Prescription Opioid Use cp Prescriptions: - Protonix 40 mg Oral Tablet - take 1 tablet by ORAL route once daily; 30 tablet; Refills: 0, Product cp Selection Permitted - Carafate 1 gram Oral Tablet - take 1 tablet by ORAL route 4 times per day take on an empty stomach, beginning cp on waking and last dose at bedtime. dissolve tablet in 8 ounces warm water prior to ingestion; 100 tablet; Refills: 0, Product Selection Permitted - promethazine 25 mg Oral Tablet - take 1 tablet by ORAL route every 6 hours As needed; 20 tablet; Refills: 0, cp Product Selection Permitted Signatures: Dispatcher [employer] EDMS Natanael Peñaloza PA PA cp Prokisch, Amanda, RN RN ap3 Shirley Pedro RN RN kb3 Corrections: (The following items were deleted from the chart) 02/26 17:45 02/25 16:30 Constitutional: The patient appears in no acute distress, alert, awake, cp non-diaphoretic, non-toxic, well developed, well nourished, overweight cp 02/26 17:45 02/25 16:30 Head/Face: Normocephalic, atraumatic. cp cp 02/26 17:45 02/25 16:30 Eyes: Periorbital structures: appear normal, Conjunctiva: normal, no cp exudate, no injection, Sclera: no appreciated abnormality, Lids and lashes: appear normal, bilaterally, cp 02/26 17:45 02/25 16:30 ENT: External ear(s): are unremarkable, Nose: is normal, Mouth: Lips: cp moist, Oral mucosa: pink and intact, moist, Posterior pharynx: Airway: no evidence of obstruction, patent, Tonsils: are normal in appearance, erythema, is not appreciated, exudate, is not appreciated, cp 02/26 17:45 02/25 16:30 Chest/axilla: Inspection: normal, Palpation: is normal, no crepitus, no cp tenderness, cp 02/26 16:30 Cardiovascular: Rate: normal, Rhythm: regular, Edema: is not appreciated, cp JVD: is not appreciated, cp 02/26 16:30 Respiratory: the patient does not display signs of respiratory distress, cp Respirations: normal, no use of accessory muscles, no retractions, labored breathing, is not present, Breath sounds: are clear throughout, no decreased breath sounds, no stridor, no wheezing, cp 02/26 16:30 Abdomen/GI: Inspection: obese Bowel sounds: active, all quadrants, cp Palpation: soft, in all quadrants, moderate abdominal tenderness, in the epigastric area, rebound tenderness, is not appreciated, voluntary guarding, is elicited in the epigastric area, cp 02/26 16:30 Back: CVA tenderness, is absent, cp cp 02/26 16:30 Skin: cellulitis, is not appreciated, no rash present. cp cp 02/26 16:30 Neuro: Orientation: to person, place \T\ time. Mentation: is normal, Motor: cp moves all fours, strength is normal, Sensation: is normal, cp
--- NOTE | 2022-02-25 21:12 | ER ---
Nurse's Notes [facility] Name: Lexie Gray Age: 41 yrs Sex: Female : 1980 Arrival Date: 02/25/2022 Time: 17:39 Bed 24 Private MD: Diagnosis: Epigastric pain Presentation: 02/25 17:47 Chief complaint: Patient states: she started having abdominal pain this afternoon ap3 around 1500. patient states this has happened before. Coronavirus screen: At this time, the client does not indicate any symptoms associated with coronavirus-19. Ebola Screen: No symptoms or risks identified at this time. Initial Sepsis Screen: Does the patient meet any 2 criteria? No. Patient's initial sepsis screen is negative. Does the patient have a suspected source of infection? No. Patient's initial sepsis screen is negative. Risk Assessment: Do you want to hurt yourself or someone else? Patient reports no desire to harm self or others. Onset of symptoms was February 25, 2022 at 15:00. 17:47 Method Of Arrival: Ambulatory ap3 17:47 Acuity: RADHA 3 ap3 Triage Assessment: 17:49 General: Appears uncomfortable, Behavior is calm, cooperative. Pain: Complains of pain ap3 in abdomen. Neuro: Level of Consciousness is awake, alert, obeys commands, Oriented to person, place, time, situation. Cardiovascular: Patient's skin is warm and dry. Respiratory: Airway is patent Respiratory effort is even, unlabored, Respiratory pattern is regular, symmetrical. GI: Reports lower abdominal pain, upper abdominal pain, diarrhea, nausea, vomiting. 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 - Social history:: Smoking status: Patient reports the use of cigarette tobacco products, smokes one-half pack cigarettes per day. Screenin:50 Abuse screen: Denies threats or abuse. Nutritional screening: No deficits noted. ap3 Tuberculosis screening: No symptoms or risk factors identified. Fall Risk None identified. Assessment: 18:00 Reassessment: No changes from previously documented assessment. General: Appears in no kb3 apparent distress. uncomfortable, Behavior is calm, cooperative, Received care of pt from triage. AAOx4. PT reports severe epigastric pain and generalized abdominal bloating with associated nausea, vomiting and diarrhea x2 episodes since 1500 today. Pt reports multiple episodes of similar symptoms in the past with no findings. 18:00 Pain: Complains of pain in epigastric area Pain does not radiate. Pain currently is 10 kb3 out of 10 on a pain scale. Quality of pain is described as burning, Pain began 3 hours ago. Is continuous. GI: Bowel sounds present X 4 quads. Abd is soft Abdomen is tender to palpation in epigastric area, right upper quadrant and left upper quadrant. 20:15 General: Pt reports she is not feeling any relief from the morphine pain medication. kb3 Natanael COY notified. Vital Signs: 17:47 BP 125 / 98; Pulse 89; Resp 17; Temp 98.4; Pulse Ox 100% ; Weight 88.9 kg; Height 5 ft. ap3 0 in. (152.40 cm); Pain 8/10; 19:00 BP 123 / 68; Pulse 104; Resp 20; Pulse Ox 100% ; kb3 20:00 BP 126 / 83; Pulse 100; Resp 20; Pulse Ox 100% ; kb3 17:47 Body Mass Index 38.28 (88.90 kg, 152.40 cm) ap3 ED Course: 17:39 Patient arrived in ED. as 17:45 Natanael Peñaloza PA is PHCP. cp 17:45 Tylor Pickard MD is Attending Physician. cp 17:49 Triage completed. ap3 17:50 Arm band placed on right wrist. ap3 17:59 Shirley Pedro, RN is Primary Nurse. kb3 18:00 No provider procedures requiring assistance completed. Inserted saline lock: 20 gauge kb3 in right hand, using aseptic technique. Blood collected. 19:00 Patient has correct armband on for positive identification. Placed in gown. Bed in low kb3 position. Call light in reach. Side rails up X2. Client placed on continuous cardiac and pulse oximetry monitoring. NIBP monitoring applied. 19:47 Inserted saline lock: 22 gauge in left forearm, using aseptic technique. kb3 20:[address] kb3 20:[address] kb3 21:11 René Marley MD is Referral Physician. cp 21:45 IV discontinued, intact, bleeding controlled, No redness/swelling at site. kb3 Administered Medications: 18:15 Drug: Pepcid (famotidine) 20 mg Route: IVP; Site: right hand; kb3 18:15 Drug: Zofran (Ondansetron) 4 mg Route: IVP; Site: right hand; kb3 18:15 Drug: Bentyl (dicyclomine) 20 mg Route: IM; Site: left ventrogluteal; kb3 18:15 Drug: NS 0.9% 1000 ml Route: IV; Rate: 1000 ml/hr; Site: right hand; kb3 19:33 Follow up: Response: No adverse reaction; IV Status: Completed infusion; IV Intake: kb3 1000ml 19:44 Drug: morphine 4 mg Route: IVP; Infused Over: 4 mins; Site: right hand; kb3 20:42 Follow up: Response: No adverse reaction; Pain is unchanged, physician notified kb3 19:44 Drug: Zofran (Ondansetron) 4 mg Route: IVP; Site: right hand; kb3 20:42 Follow up: Response: No adverse reaction; Nausea is decreased kb3 20:42 Drug: morphine 4 mg Route: IVP; Infused Over: 4 mins; Site: right hand; kb3 21:15 Follow up: Response: No adverse reaction; Pain is decreased kb3 20:54 Drug: Promethazine 12.5 mg Route: IVP; Infused Over: 30 mins; Site: right hand; kb3 21:43 Follow up: Response: No adverse reaction; Nausea is decreased kb3 21:15 Drug: GI Cocktail without - (Maalox Suspension 30 ml, Lidocaine Liquid 2 % 15 kb3 ml) Route: PO; 21:35 Follow up: Response: No adverse reaction; Pain is decreased kb3 21:43 Not Given (Pt left feeling much betterr): Dilaudid (HYDROmorphone) 1 mg IVP once kb3 Medication: 17:50 VIS not applicable for this client. ap3 Intake: 19:33 IV: 1000ml; Total: 1000ml. kb3 Outcome: 21:12 Discharge ordered by . cp 21:45 Discharged to home ambulatory. kb3 21:45 Condition: improved 21:45 Discharge instructions given to patient, Instructed on discharge instructions, follow up and referral plans. medication usage, Demonstrated understanding of instructions, follow-up care, medications, Prescriptions given X 3. 21:46 Patient left the ED. kb3 Signatures: Nelly Pizarro Corey, PA PA cp Prokisch, Amanda RN RN ap3 Shirley Pedro RN RN kb3
[2022-02-25 22:17] VITALS: TEMP 98.4; O2SAT 100
[2022-02-25 22:20] VITALS: BP 126/83
== END 2022-02-25 21:46 | disposition home or self-care (01) ==
LOC: ER 17:38
DX: R10.13 Epigastric pain (principal); Z88.1 Allergy status to other antibiotic agents; F17.210 Nicotine dependence, cigarettes, uncomplicated
CPT/HCPCS: 36415; 74177; 80053; 81003; 81015; 83690; 83735; 85025; 96361; 96372; 96374; 96375; 99284; J0500; J2405; J2550; J7030; Q9967

== ENCOUNTER 2024-01-11 23:36 | Emergency (ER) | payer OTHER ==
[2024-01-12] MEDS ORDERED: MORPHINE 4 MG/ML SYR ONE (01:04)
[2024-01-12] MEDS ORDERED: FAMOTIDINE 20 MG/2 ML VIAL IV ONE (01:04)
[2024-01-12] MEDS ORDERED: PROMETHAZINE INJ 25 MG/ML AMP ONE (01:04)
[2024-01-12] MEDS ORDERED: NA CHLORIDE 0.9% 1,000 ML ONE (01:05)
[2024-01-12 01:13] LABS: Absolute Eosinophils 0.1 K/uL (0-0.5); Absolute Lymphocytes (CBC) 1.4 K/uL (0.7-4.9); Absolute Monocytes 0.6 K/uL (0.1-1.3); Absolute Neutrophil 11.1 K/uL (1.8-8.0); Basophils % 0.4 % (0-1.3); Eosinophils % 0.6 % (0-4.4); Hematocrit 42.9 % (36.0-45.0); Hemoglobin 13.3 g/dL (12.0-15.0); Lymphocytes % 10.3 % (15.3-44.8); MCH 24.9 pg (27.0-35.0); MCV 80.3 fL (80-100); MPV 8.7 fL (7.6-11.3); Monocytes % 4.5 % (3.3-12.3); Neutrophils % 84.2 % (41.7-73.7); Platelets 251 thou/uL (152-406); RBC Red Blood Cell Count 5.34 M/uL (3.86-4.86)
[2024-01-12 01:30] LABS: Albumin 3.9 g/dL (3.4-5.0); Albumin/Globulin Ratio 1.1 (1.1-1.8); Anion Gap 9.3 mEq/L (5.0-15.0); Bilirubin Total 0.4 mg/dL (0.2-1.0); Globulin 3.7 g/dL (2.3-3.5); Potassium 3.3 mEq/L (3.5-5.1); Protein, Total 7.6 g/dL (6.4-8.2)
[2024-01-12 01:43] LABS: Specific Gravity 1.026 (1.005-1.030); Sqamous Epithelial <5 /HPF (None Seen); Urine Bacteria <20 /HPF (<20); Urine Bilirubin NEGATIVE (Negative); Urine Blood Trace (Negative); Urine Clarity Turbid (Clear); Urine Color Yellow (Yellow); Urine Culture Reflex Order NOT NEEDED; Urine Glucose NEGATIVE (Negative); Urine Ketones NEGATIVE (Negative); Urine Microscopic Reflex YN ORDER UMIC; Urine Mucus 2+ /HPF (None Seen); Urine Nitrite NEGATIVE (Negative); Urine Protein TRACE (Negative); Urine RBC <5 /HPF (None Seen); Urine Urobilinogen 1+ (Normal); Urine WBC <5 /HPF (<5); Urine pH 5.5 (5.0-7.0)
[2024-01-12] MEDS ORDERED: MAGNESIUM CITRATE 300 ML BOT ONE (01:55)
--- NOTE | 2024-01-12 02:49 | ER ---
Nurse's Notes [facility] Name: Lexie Gray Age: 43 yrs Sex: Female : 1980 Arrival Date: 01/11/2024 Time: 23:36 Bed 2 Private MD: Diagnosis: Abdominal pain, unspecified;Constipation, unspecified;Nausea with vomiting, unspecified Presentation: 01/10 23:40 Chief complaint: EMS states: c/o abdominal pain that radiates up chest and down to vc1 stomach. Coronavirus screen: Vaccine status: Patient reports being unvaccinated. Client denies travel out of the [place] in the last 14 days. At this time, the client does not indicate any symptoms associated with coronavirus-19. Ebola Screen: Patient negative for fever greater than or equal to 101.5 degrees Fahrenheit, and additional compatible Ebola Virus Disease symptoms Patient denies exposure to infectious person. Patient denies travel to an Ebola-affected area in the 21 days before illness onset. No symptoms or risks identified at this time. Initial Sepsis Screen: Does the patient meet any 2 criteria? No. Patient's initial sepsis screen is negative. Does the patient have a suspected source of infection?. Risk Assessment: Do you want to hurt yourself or someone else? Patient reports no desire to harm self or others. Onset of symptoms was January 11, 2024 at 13:00. Care prior to arrival: Medication(s) given: zofran "0.3mg Zofran". Activity prior to arrival: vomiting. Mechanism of Injury: No Mechanism of Injury. Transition of care: patient was not received from another setting of care. 23:40 Method Of Arrival: EMS: [facility] vc1 23:40 Acuity: RADHA 3 vc1 Triage Assessment: 01/11 00:00 General: Appears in no apparent distress. uncomfortable, obese, well groomed, well vc1 developed, well nourished, Behavior is calm, cooperative, appropriate for age. Pain: Complains of pain in abdomen Pain radiates to diaphragm and pelvis Pain currently is 7 out of 10 on a pain scale. Quality of pain is described as sharp, Pain began suddenly, 11 am. EENT: No deficits noted. No signs and/or symptoms were reported regarding the EENT system. Neuro: Level of Consciousness is awake, alert, obeys commands, Oriented to person, place, time, situation, Appropriate for age. Cardiovascular: No deficits noted. Heart tones S1 S2 Capillary refill < 3 seconds Patient's skin is warm and dry. Respiratory: Airway is patent Respiratory effort is even, unlabored, Respiratory pattern is regular, symmetrical, Breath sounds are clear bilaterally. GI: Abdomen is round non-distended, Bowel sounds present X 4 quads. Abd is soft Abd is non tender Reports upper abdominal pain, nausea, vomiting. : No deficits noted. No signs and/or symptoms were reported regarding the genitourinary system. Derm: Skin is intact, is healthy with good turgor, Skin is dry, Skin is normal, Skin temperature is warm. Musculoskeletal: Circulation, motion, and sensation intact. Range of motion: intact in all extremities. 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 - Infectious Disease History:: Denies. - Family history:: not pertinent. - Social history:: Smoking status: Patient reports the use of cigarette tobacco products, 5/day. - Hospitalizations: : No recent hospitalization is reported. Screenin:00 [facility] ED Fall Risk Assessment (Adult) History of falling in the last 3 months, vc1 including since admission No falls in past 3 months (0 pts) Confusion or Disorientation No (0 pts) Intoxicated or Sedated No (0 pts) Impaired Gait No (0 pts) Mobility Assist Device Used No (0 pt) Altered Elimination No (0 pt) Score/Fall Risk Level 0 - 2 = Low Risk Oriented to surroundings, Maintained a safe environment, Educated pt \\T\\ family on fall prevention, incl call for assistance when getting out of bed. Abuse screen: Denies threats or abuse. Nutritional screening: No deficits noted. Tuberculosis screening: No symptoms or risk factors identified. Vital Signs: 01/10 23:40 BP 134 / 98; Pulse 87; Resp 18; Temp 98.3; Pulse Ox 98% ; Weight 78.93 kg; Height 5 ft. vc1 0 in. ; Pain 7/10; 01/11 01:45 BP 118 / 79; Pulse 93; Resp 17; Pulse Ox 95% ; vc1 03:01 BP 131 / 87; Pulse 92; Resp 18; Pulse Ox 99% ; cp4 01/10 23:40 Body Mass Index 33.98 (78.93 kg, 152.4 cm) vc1 01/10 23:40 Pain Scale: Adult vc1 ED Course: 01/10 23:40 Patient arrived in ED. vc1 23:41 Moisés Dinero MD is Attending Physician. rn 01/11 00:16 Triage completed. vc1 00:16 Arm band placed on left wrist. vc1 00:44 CT Abd/Pelvis - Without Contrast In Process Unspecified. EDMS 01:30 Inserted saline lock: 22 gauge in right antecubital area, using aseptic technique. cp4 Blood collected. Flushed with 10 mL NS. 03:02 Bed in low position. Call light in reach. Side rails up X2. Provided Education on: cp4 constipation. 03:02 No provider procedures requiring assistance completed. cp4 03:02 intact, bleeding controlled, No redness/swelling at site. Pressure dressing applied. cp4 Administered Medications: 01:39 Drug: Famotidine IVP 20 mg IVP once; dilute with 10 mL 0.9% NaCl; give over 2 minutes vc1 Route: IVP; Site: right forearm; 02:00 Follow up: Response: No adverse reaction cp4 01:39 Drug: morphine IVP or IV 4 mg IVP once over 4 mins Route: IVP; Infused Over: 4 mins; vc1 Site: right antecubital; 02:00 Follow up: Response: No adverse reaction; Pain is decreased cp4 01:39 Drug: NS 0.9% IV 1000 ml IV at 1000 ml once Route: IV; Rate: 1000 ml; Site: right vc1 forearm; 02:00 Follow up: Response: No adverse reaction; IV Status: Completed infusion cp4 01:39 Drug: Promethazine IVP 12.5 mg IVP once Route: IVP; Site: right forearm; vc1 02:00 Follow up: Response: No adverse reaction; Nausea is decreased cp4 02:00 Drug: Magnesium Citrate PO Liquid 300 ml PO once Route: PO; cp4 03:03 Follow up: Response: No adverse reaction cp4 Medication: 00:00 VIS not applicable for this client. vc1 Outcome: 02:49 Discharge ordered by . rn 03:02 Discharged to home ambulatory, cp4 03:02 Condition: stable 03:02 Discharge instructions given to patient, Instructed on discharge instructions, follow up and referral plans. medication usage, Demonstrated understanding of instructions, follow-up care, medications, Prescriptions given X 1, 03:03 Patient left the ED. cp4 Signatures: Dispatcher [employer] EDMS Moisés Dinero MD MD rn Calcote, Vanessa, RN RN vc1 Kala Jimenes cp4 Corrections: (The following items were deleted from the chart) 01:40 01:39 Promethazine IVP 12.5 mg IVP in right antecubital vc1 vc1 01:40 01:39 NS 0.9% IV 1000 ml IV at 1000 ml in right antecubital vc1 vc1 01:40 01:39 Famotidine IVP 20 mg IVP in right antecubital vc1 vc1
--- NOTE | 2024-01-12 02:50 | EDPHYS ---
Physician Documentation [facility] Name: Lexie Gray Age: 43 yrs Sex: Female : 1980 Arrival Date: 01/11/2024 Time: 23:36 Bed 2 Private MD: ED Physician Moisés Dinero HPI: 01/10 23:53 This 43 yrs old Female presents to ER via Unassigned with complaints of abd rn pain, vomiting. 23:53 The patient presents with abdominal pain in the epigastric area. Onset: The rn symptoms/episode began/occurred today. The symptoms do not radiate. Associated signs and symptoms: Pertinent positives: nausea and vomiting, Pertinent negatives: blood in stools, chest pain, fever, hematuria, shortness of breath, vomiting blood. The symptoms are described as achy, crampy, intermittent. Modifying factors: The symptoms are alleviated by nothing, the symptoms are aggravated by touching the area. Severity of pain: At its worst the pain was moderate in the emergency department the pain is unchanged. The patient has experienced similar episodes in the past. Patient reports epigastric abdominal pain and mid abdominal pain that began earlier today. Has a history of both gastric ulcers and gastroparesis and states feels like a combination of the two. No blood in emesis. No blood in stool. No chest pain.. 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 - Infectious Disease History:: Denies. - Family history:: not pertinent. - Social history:: Smoking status: Patient reports the use of cigarette tobacco products, 5/day. - Hospitalizations: : No recent hospitalization is reported. ROS: 01/10 23:53 Constitutional: Negative for fever, chills, and weight loss, Cardiovascular: Negative rn for chest pain, palpitations, and edema, Respiratory: Negative for shortness of breath, cough, wheezing, and pleuritic chest pain, Abdomen/GI: Positive for abdominal pain with nausea and vomiting Back: Negative for injury and pain, : Negative for injury, bleeding, discharge, and swelling, MS/Extremity: Negative for injury and deformity, Skin: Negative for injury, rash, and discoloration, Neuro: Positive for generalized weakness and malaise Exam: 23:53 Constitutional: This is a well developed, well nourished patient who is awake, alert, rn and in no acute distress. ENT: Dry mucous membranes Cardiovascular: Regular rate and rhythm. No pulse deficits. Respiratory: No increased work of breathing, no retractions or nasal flaring. Abdomen/GI: Soft, mild epigastric tenderness. No distention. No peritoneal signs MS/ Extremity: Pulses equal, no cyanosis Neuro: Awake and alert, GCS 15 Vital Signs: 23:40 BP 134 / 98; Pulse 87; Resp 18; Temp 98.3; Pulse Ox 98% ; Weight 78.93 kg; Height 5 ft. vc1 0 in. ; Pain 7/10; 01/11 01:45 BP 118 / 79; Pulse 93; Resp 17; Pulse Ox 95% ; vc1 03:01 BP 131 / 87; Pulse 92; Resp 18; Pulse Ox 99% ; cp4 01/10 23:40 Body Mass Index 33.98 (78.93 kg, 152.4 cm) vc1 01/10 23:40 Pain Scale: Adult vc1 MDM: 01/10 23:41 Patient medically screened. rn 01/11 02:48 Differential diagnosis: bowel obstruction, gastritis, gastroesophageal reflux disease, rn non-specific abd pain, pancreatitis, Peptic Ulcer Disease. Data reviewed: vital signs, nurses notes, lab test result(s), radiologic studies, CT scan, and as a result, I will discharge patient. Care significantly affected by the following chronic conditions: Gastroparesis, PUD. Counseling: I had a detailed discussion with the patient and/or guardian regarding the historical points, exam findings, and any diagnostic results supporting the discharge/admit diagnosis, lab results, radiology results, the need for outpatient follow up, to return to the emergency department if symptoms worsen or persist or if there are any questions or concerns that arise at home. Response to treatment: the patient's symptoms have mildly improved after treatment, and as a result, I will discharge patient. Special discussion: Based on the patient's Hx, exam, and Dx evaluation, there is no indication for emergent surgery or inpatient Tx. It is understood by the patient/guardian that if the Sx's persist or worsen they need to return immediately for re-evaluation. I discussed with the patient/guardian in detail that at this point there is no indication for admission to the hospital. It is understood, however, that if the symptoms persist or worsen the patient needs to return immediately for re-evaluation. 01/10 23:52 Order name: CBC with Diff; Complete Time: 01:27 rn 01/10 23:52 Order name: CMP; Complete Time: : rn 01/10 23:52 Order name: Lipase; Complete Time: : rn 01/11 01:21 Order name: Urinalysis w/ reflexes; Complete Time: :43 cp4 01/10 23:52 Order name: CT Abd/Pelvis - Without Contrast rn 01/10 23:52 Order name: IV Saline Lock; Complete Time: 01:33 rn 01/10 23:52 Order name: Labs collected and sent; Complete Time: 01:33 rn Administered Medications: 01:39 Drug: Famotidine IVP 20 mg IVP once; dilute with 10 mL 0.9% NaCl; give over 2 minutes vc1 Route: IVP; Site: right forearm; 02:00 Follow up: Response: No adverse reaction cp4 01:39 Drug: morphine IVP or IV 4 mg IVP once over 4 mins Route: IVP; Infused Over: 4 mins; vc1 Site: right antecubital; 02:00 Follow up: Response: No adverse reaction; Pain is decreased cp4 01:39 Drug: NS 0.9% IV 1000 ml IV at 1000 ml once Route: IV; Rate: 1000 ml; Site: right vc1 forearm; 02:00 Follow up: Response: No adverse reaction; IV Status: Completed infusion cp4 01:39 Drug: Promethazine IVP 12.5 mg IVP once Route: IVP; Site: right forearm; vc1 02:00 Follow up: Response: No adverse reaction; Nausea is decreased cp4 02:00 Drug: Magnesium Citrate PO Liquid 300 ml PO once Route: PO; cp4 03:03 Follow up: Response: No adverse reaction cp4 Disposition Summary: 01/12/24 02:49 Discharge Ordered Notes: Location: Home rn Problem: new rn Symptoms: have improved rn Condition: Stable rn Diagnosis - Abdominal pain, unspecified rn - Constipation, unspecified rn - Nausea with vomiting, unspecified rn Followup: rn - With: Private Physician - When: As needed - Reason: Recheck today's complaints, Re-evaluation by your physician Discharge Instructions: - Discharge Summary Sheet rn - Abdominal Pain, Adult rn - Constipation, Adult rn - Nausea and Vomiting, Adult rn - Gastroparesis rn Forms: - Medication Reconciliation Form rn - Antibiotic leadership program intern - Prescription Opioid Use rn - Patient Portal Instructions rn - Leadership Thank You Letter rn Prescriptions: - Reglan 10 mg Oral tablet - take 1 tablet ORAL route every 8 hours As needed take 30 minutes before meals rn and at bedtime; 20 tablet; Refills: 0, Product Selection Permitted Signatures: Dispatcher [employer] EDMS Moisés Dinero MD MD rn Calcote, Vanessa, RN RN vc1 Kala Jimenes cp4 Corrections: (The following items were deleted from the chart) 01:21 01:21 Urinalysis+[id number].LAB.BRZ ordered. EDMS EDMS
[2024-01-12 03:23] VITALS: TEMP 98.3
[2024-01-12 03:25] VITALS: BP 131/87; O2SAT 99
--- OUTSIDE RECORDS SUMMARY | 2024-01-13 13:28 | XMS REPORT | Continuity of Care Document ---
Author Name Unknown Address [address] [facility] [place] [address] [facility] thconnect Address [address] [facility] [address] [place] [address] Care Team Providers Care Public Affairs Director Name Role Phone PCP, PATIENT DOES NOT HAVE A Primary Care Physic theodore Unavailable GC_GCBZW_Kadiyala_S Attending Clinician Keerthia BAYRON Armendariz Attending Clinician Keerthia BAYRON Armendariz Attending Clinician CHAYA Gallego Attending Clinician Chaya Carrasco MD Attending Clinician GC_GCBZW_Kabrad_Dede Admitting Clinician Keerthia anthony Payers Payer Name Policy Type Policy Number Effective Date Expirati on Date Source [facility] [id number] [facility] [id number] [facility] [id number] 00:00:00 2021 00:00:00 Problems Condition Name Condition Details Condition Category Status Onset Date Resolution Date Last Treatment Date Treating Clinician Comments Source Breakthrou gh bleeding with IUD Breakthrou gh bleeding with IUD Disease Active 5- 00:00: 00 [facility] Smoker Smoker Disease Active 10-02 00:00: 00 [facility] Presence of of 13.5 mg levonorges trel-relea sing intrauteri ne device (IUD) Presence of of 13.5 mg levonorges trel-relea sing intrauteri ne device (IUD) Disease Active 2016-05 00:00: 00 [facility] Morbid obesity Morbid obesity Disease Active 2016-05 00:00: 00 [facility] 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 09-07 00:00: 00 [facility] Obesity Obesity Disease Active 08-17 00:00: 00 [facility] Hiatal hernia Hiatal hernia Disease Active 08-17 00:00: 00 [facility] Gestationa l diabetes mellitus Gestationa l diabetes mellitus Disease Active 12-12 00:00: 00 [facility] Allergies, Adverse Reactions, Alerts Allergy Name Allergy Type Status Severity Reaction(s) Onset Date Inactive Date Treating Clinician Comments Source vangie hanks DA Active U 01-21 00:00: 00 [facility] Azithrom ycin Propensi ty to adverse reaction s to drug Active Rash 12-12 00:00: 00 [facility] AZITHROM YCIN DRUG INGREDI Active Rash 12-12 00:00: 00 [facility] Social History Social Habit Start Date Stop Date Quantity Comments Source History of tobacco use Cigarette Smoker [facility] History SDOH Alcohol Std Drinks [facility] History SDOH Alcohol Binge [facility] History SDOH Alcohol Comment [place] [facility] Exposure to SARS-CoV-2 (event) Not sure [facility] Alcohol intake 2021-07-19 00:00:00 2021-07-19 00:00:00 0 /d [facility] History SDOH Alcohol Frequency 2021-07-19 00:00:00 2021-07-19 00:00:00 1 [facility] Cigarettes smoked current (pack per day) - Reported 2017-10-02 00:00:00 2017-10-02 00:00:00 [facility] Tobacco use and exposure 2017-10-02 00:00:00 2017-10-02 00:00:00 Never used [facility] Sex Assigned At 1980 00:00:1980 00:00:00 [facility] Smoking Status Start Date Stop Date Source Current every day smoker 2017-10-02 00:00:00 [facility] Medications Ordered Medication Name Filled Medication Name Start Date Stop Date Current Medication? Ordering Clinician Indication Dosage Frequency Signature (SIG) Comments Components Source TAKE ONE (1) TABLET(S) BY MOUTH ONCE A DAY. 01-21 00:00: 00 No 40 Dose Unknown 01-21 00:00: 00 No TAKE ONE (1) TABLET(S) BY MOUTH ONCE A DAY. 01-21 00:00: 00 No 40 TAKE ONE (1) CAPSULE(S) BY MOUTH THREE TIMES A DAY. 01-21:00: 00 No TAKE ONE (1) TABLET(S) BY MOUTH ONCE A DAY. 01-21 00:00: 00 No 40 TAKE ONE (1) CAPSULE(S) BY MOUTH THREE TIMES A DAY. 01-21:00: 00 No 300 TAKE ONE (1) TABLET(S) BY MOUTH ONCE A DAY. 01-21:00: 00 No 40 TAKE ONE (1) CAPSULE(S) BY MOUTH THREE TIMES A DAY. 01-21 00:00: 00 No 300 TAKE 1 TAB 4 TIMES A DAY NEEDED 01-08 00:00: 00 No 50 TAKE 1 TABLET TWICE DAILY WITH FOOD. 01-08 00:00: 00 No [id number] TAKE 1 TAB 4 TIMES A DAY NEEDED 01-08 00:00: 00 No 50 TAKE 1 TABLET TWICE DAILY WITH FOOD. 01-08 00:00: 00 No [id number] TAKE 1 TAB 4 TIMES A DAY NEEDED 01-08 00:00: 00 No 50 TAKE 1 TABLET TWICE DAILY WITH FOOD. 2022-0 8-16 00:00: 00 No [id number] TAKE 1 TAB 4 TIMES A DAY NEEDED 01-08 00:00: 00 No 50 TAKE 1 TABLET TWICE DAILY WITH FOOD. 01-08 00:00: 00 No [id number] TAKE 1 TAB 4 TIMES A DAY NEEDED 01-08 00:00: 00 No 50 TAKE 1 TABLET TWICE DAILY WITH FOOD. 01-08 00:00: 00 No [id number] TAKE 1 TAB 4 TIMES A DAY NEEDED 01-08 00:00: 00 No 50 TAKE 1 TABLET TWICE DAILY WITH FOOD. 01-08 00:00: 00 No [id number] TAKE 1 TABLET TWICE DAILY WITH FOOD. 01-03 00:00: 00 No [id number] TAKE 1 TABLET TWICE DAILY WITH FOOD. 01-03 00:00: 00 No [id number] TAKE 1 TABLET TWICE DAILY WITH FOOD. 01-03 00:00: 00 No [id number] TAKE 1 TABLET TWICE DAILY WITH FOOD. 01-03 00:00: 00 No [id number] TAKE 1 TABLET TWICE DAILY WITH FOOD. 01-03 00:00: 00 No [id number] TAKE 1 TABLET TWICE DAILY WITH FOOD. 01-03 00:00: 00 No [id number] TAKE 1 TABLET TWICE DAILY WITH FOOD. 01-03 00:00: 00 No [id number] metroNIDAZO LE 500 mg tablet 307 00:00: 00 08-07 04:59 :00 No [id number] 500mg Take 1 tablet by mouth every 12 (twelve) hours for 7 days. [facility] fluconazole 150 mg tablet 3-07 00:00: 00 07-31 05:59 :00 No [id number] 150mg Take 1 tablet by mouth once now for 1 dose. [facility] metroNIDAZO LE 500 mg tablet 07-20 00:00: 00 07-21 05:59 :00 No [id number] 2000mg Take 4 tablets by mouth once now for 1 dose. Do not drink alcohol while taking this medication . [facility] acetaminoph en (TYLENOL) 325 mg tablet 07-19 15:45: 13 07-19 00:00 :00 No Take by mouth every 6 (six) hours as needed. [facility] naproxen sodium (ALEVE ORAL) 07-19 15:45: 04 07-19 00:00 :00 No Take by mouth. [facility] GABAPENTIN ORAL 07-19 14:34: 50 Yes Take by mouth. [facility] pantoprazol e 40 mg EC tablet 06-27 00:00: 00 Yes [facility] phentermine 37.5 mg tablet 07-25 00:00: 00 07-19 00:00 :00 No [facility] zolpidem (AMBIEN) 10 mg tablet 07-14 00:00: 00 Yes [facility] Vital Signs Vital Name Observation Time Observation Value Comments S ource Systolic blood pressure 2021-07-19 20:32:00 138 mm[Hg] [facility] Diastolic blood pressure 2021-07-19 20:32:00 92 mm[Hg] [facility] Heart rate 2021-07-19 20:32:00 73 /min [facility] Body temperature 2021-07-19 20:32:00 36.72 Tabitha [facility] Respiratory rate 2021-07-19 20:32:00 18 /min [facility] Body height 2021-07-19 20:32:00 154.9 cm [facility] Body weight 2021-07-19 20:32:00 90.039 kg [facility] BMI 2021-07-19 20:32:00 37.51 kg/m2 [facility] BP Systolic 2022-04-30 16:59:00 127 mm[Hg] BP Diastolic 2022-04-30 16:59:00 82 mm[Hg] Weight Measured 2022-04-30 16:59:00 199.60 pounds Height Measured 2022-04-30 16:59:00 60.00 inches Body Temperature 2022-04-30 16:59:00 98.60 degrees Heart Rate 2022-04-30 16:59:00 94.00 /min Respiratory Rate 2022-04-30 16:59:00 18.00 /min BP Systolic 2022-01-29 09:58:00 138 mm[Hg] BP [...] Respiratory Rate 2022-01-15 10:44:00 17.00 /min BP Systolic 2022-01-14 11:01:00 143 mm[Hg] BP Diastolic 2022-01-14 11:01:00 90 mm[Hg] Weight Measured 2022-01-14 11:01:00 196.40 pounds Height Measured 2022-01-14 11:01:00 60.00 inches Body Temperature 2022-01-14 11:01:00 98.20 degrees Heart Rate 2022-01-14 11:01:00 82.00 /min Respiratory Rate 2022-01-14 11:01:00 18.00 /min BP Systolic 2022-01-08 08:02:00 127 mm[Hg] BP [...] degrees Heart Rate 2022-01-03 09:46:00 77.00 /min Plan of Care Planned Activity Planned Date Details Comments Source Goal Plan of Care Note [code = 20544-8] Goal Plan of Care Note [code = 67736-7] Goal Plan of Care Note [code = 45987-5] Goal Plan of Care Note [code = 34697-9] Goal Plan of Care Note [code = 89450-2] Goal Plan of Care Note [code = 77273-3] Goal Plan of Care Note [code = 07690-3] Goal Plan of Care Note [code = 67054-3] Goal Plan of Care Note [code = 18422-7] Goal Plan of Care Note [code = 77226-7] Goal Plan of Care Note [code = 95731-5] Goal Plan of Care Note [code = 37844-2] Goal Plan of Care Note [code = 01393-2] Goal Plan of Care Note [code = 42154-3] Goal Plan of Care Note [code = 12709-2] Goal Plan of Care Note [code = 82558-8] Goal Plan of Care Note [code = 01677-7] Goal Plan of Care Note [code = 73497-8] Goal Plan of Care Note [code = 33472-5] Goal Plan of Care Note [code = 91060-9] Goal Plan of Care Note [code = 13972-7] Goal Plan of Care Note [code = 80910-0] Goal Plan of Care Note [code = 85978-3] Goal Plan of Care Note [code = 64495-0] Goal Plan of Care Note [code = 85276-6] Goal Plan of Care Note [code = 11397-9] Goal Plan of Care Note [code = 67962-1] Goal Plan of Care Note [code = 66880-8] Goal Plan of Care Note [code = 43120-2] Goal Plan of Care Note [code = 38908-5] Goal Plan of Care Note [code = 42525-6] Goal Plan of Care Note [code = 01669-0] Goal Plan of Care Note [code = 11543-1] Goal Plan of Care Note [code = 42249-0] Goal Plan of Care Note [code = 40565-9] Goal Plan of Care Note [code = 29191-7] Goal Plan of Care Note [code = 16176-3] Goal Plan of Care Note [code = 50514-4] Goal Plan of Care Note [code = 45831-6] Goal Plan of Care Note [code = 36698-8] Goal Plan of Care Note [code = 00930-0] Goal Plan of Care Note [code = 50786-7] Goal Plan of Care Note [code = 58291-8] Goal Plan of Care Note [code = 28538-2] Goal Plan of Care Note [code = 43223-6] Goal Plan of Care Note [code = 31847-4] Goal Plan of Care Note [code = 21534-5] Goal Plan of Care Note [code = 78985-6] Goal Plan of Care Note [code = 50443-8] Goal Plan of Care Note [code = 21667-7] Goal Plan of Care Note [code = 26428-2] Goal Plan of Care Note [code = 11405-8] Goal Plan of Care Note [code = 93463-7] Goal Plan of Care Note [code = 13862-9] Goal Plan of Care Note [code = 93543-4] Goal Plan of Care Note [code = 39106-9] Goal Plan of Care Note [code = 14610-6] Goal Plan of Care Note [code = 29097-7] Encounters Start Date/Time End Date/Time Encounter Type Admission Type Attending Clinicians Care Facility Care Department Encounter ID Source 2023-03-29 00:00:00 2023-03-29 00:00:00 Outpatient GC_GCBZW_Ka donna_S [facility] [id number] [facility] 2023-03-23 00:00:00 2023-03-23 00:00:00 Outpatient GC_GCBZW_Ka diyala_S PRIV PRIV [id number] [facility] 2023-03-01 00:00:00 2023-03-01 00:00:00 Outpatient GC_GCBZW_Ka diyala_S PRIV PRIV [id number] [facility] 2023-02-01 00:00:00 2023-02-01 00:00:00 Outpatient GC_GCBZW_Ka diyala_S PRIV PRIV [id number] [facility] 2022-12-31 00:00:00 2022-12-31 00:00:00 Outpatient GC_GCBZW_Ka diyala_S PRIV PRIV [id number] [facility] 2022-12-31 00:00:00 2022-12-31 00:00:00 Outpatient GC_GCBZW_Ka diyala_S PRIV PRIV [id number] [facility] 2022-12-25 00:00:00 2022-12-25 00:00:00 Outpatient GC_GCBZW_Ka diyala_S PRIV PRIV [id number] [facility] 2022-12-19 00:00:00 2022-12-19 00:00:00 Outpatient GC_GCBZW_Ka diyala_S PRIV PRIV [id number] [facility] 2022-12-19 00:00:00 2022-12-19 00:00:00 Outpatient GC_GCBZW_Ka diyala_S PRIV PRIV [id number] [facility] 2022-12-14 00:00:00 2022-12-14 00:00:00 Outpatient GC_GCBZW_Ka diyala_S PRIV PRIV [id number] [facility] 2022-12-12 00:00:00 2022-12-12 00:00:00 Outpatient GC_GCBZW_Ka diyala_S PRIV PRIV [id number] [facility] 2022-12-12 00:00:00 2022-12-12 00:00:00 Outpatient GC_GCBZW_Ka diyalabdirashid_S [facility] [id number] [facility] 2022-07-22 10:00:00 2022-07-22 10:00:00 Outpatient CHAYA BORGES [facility] [id number] [facility] 2022-07-22 10:00:00 2022-07-22 10:00:00 Outpatient CHAYA BORGES [facility] [id number] [facility] 2022-04-30 16:39:19 2022-04-30 16:39:19 Outpatient [facility] [id number] Richard Panchal 2022-04-30 00:00:00 2022-04-30 00:00:00 Outpatient Visit [id number] 2022-02-04 00:00:00 2022-02-04 00:00:00 Outpatient Visit [id number] 2022-01-29 00:00:00 2022-01-29 00:00:00 Outpatient Visit [id number] 2022-01-15 00:00:00 2022-01-15 00:00:00 Outpatient Visit [id number] 2022-01-14 00:00:00 2022-01-14 00:00:00 Outpatient Visit [id number] -[id number] 2022-01-08 00:00:00 2022-01-08 00:00:00 Outpatient Visit [id number] [id number] 2022-01-03 00:00:00 2022-01-03 00:00:00 Outpatient Visit [id number] 2021-08-07 13:30:00 2021-08-07 13:30:00 Outpatient MILKA BORGESN [facility] [id number] [facility] 2021-08-07 13:30:00 2021-08-07 13:30:00 Outpatient MILKA BORGESN [facility] [id number] [facility] 2021-08-06 00:00:00 2021-08-06 00:00:00 Outpatient MILKA BORGESN [facility] [id number] [facility] 2021-07-30 00:00:00 2021-07-30 00:00:00 [facility] [id number] [facility] 2021-07-30 00:00:00 2021-07-30 00:00:00 Case Management [facility] [id number] [id number] [facility] 2021-07-20 00:00:00 2021-07-20 00:00:00 Case Management Chaya Knight [facility] [id number] [id number] [facility] 2021-07-19 14:00:00 2021-07-19 15:14:29 Office Visit Chaya Knight [facility] [id number] [id number] [facility] 2021-07-19 14:00:00 2021-07-19 15:14:29 Outpatient R CHAYA KNIGHT [facility] [id number] [facility] 2021-07-19 14:00:00 2021-07-19 15:14:29 Outpatient R CHAYA KNIGHT [facility] [id number] [facility] 2021-07-19 14:00:00 2021-07-19 14:00:00 Outpatient R CHAYA KNIGHT [facility] [id number] [facility] 2020-08-17 16:00:00 2020-08-17 16:00:00 Outpatient R [facility] [id number] [facility] Results Test Description Test Time Test Comments Results Result Co mments Source SURGICAL SPECIMENS 2019-01-26 14:45:00 --RUN DATE: 01/26/19 Zulay IRELAND *LIVE* PAGE 1 RUN TIME: 1445 Specimen Inquiry RUN USER: INTERFACE --PATIENT: NAIF SINGH LOC: YENNY U #: [id number] AGE/SX: 38/F ROOM: RE01/22/19[facility] DR: Derek Garcia MD : 78 BED: DIS: [place] [facility] [place] -- SPEC #: [id number] RECD: 01/22/19 STATUS: [facility] REQ #: [id number] JONG: 01/22/[address] [facility] [address]: Derek Garcia MD ENTERED: 01/22/19 [...] a single cassette. RAB/eb MICROSCOPIC DESCRIPTION Microscopic performed.-------- Signed SIGNATURE ON Carly Wood MD 01/26/19 1445 -- END OF REPORT SURGICAL SPECIMENS 2019-01-26 14:45:00 --RUN DATE: 01/27/19 Zulay IRELAND *LIVE* PAGE 1 RUN TIME: 1438 Specimen Inquiry RUN USER: INTERFACE --PATIENT: NAIF SINGH LOC: YENNY U #: [id number] AGE/SX: 38/F ROOM: RE01/22/19[facility] DR: Derek Garcia MD : 78 BED: DIS: [place] [facility] [facility] [place]: -- SPEC #: [id number] RECD: 01/22/19 STATUS: [facility] #: [id number] JONG: 01/22/[address] [facility] [address]: Derek Garcia MD ENTERED: 01/22/19 [...] [place] ADDENDUM FINDINGS Addendum #1 Entered: 01/27/191242 This addendum is being issued to comment [...] ON FILE Carly Chavez MD 01/27/19 1438 -- CLINICAL HISTORY GERD FINAL DIAGNOSIS A-ANTRUM, BIOPSY: - Antral and oxyntic type gastric mucosa with minimal chronic inflammation. - Negative for H. pylori organisms. B-GE JUNCTION, BIOPSY: - Squamous mucosa with mild to moderate chronic inflammation, occasional eosinophils and reactive epithelial changes. - Focal pancreatic acinar cell heterotopia. - Negative for intestinal metaplasia. CONTINUED ON NEXT PAGE --RUN DATE: 01/27/19 Zulay IRELAND *LIVE* PAGE 2 RUN TIME: 1438 Specimen Inquiry RUN USER: INTERFACE --SPEC #: [id number] PATIENT: NAIF SINGH #[id number] (Continued)------- GROSS DESCRIPTION A-ANTRUM: Two pieces of tissue which measure 2 mm each. Entirely submitted in a single cassette. B-GE JUNCTION: Three pieces of tissue which measure 2-3 mm each. Entirely submitted in a single cassette. RAB/eb MICROSCOPIC DESCRIPTION Microscopic performed.-------- Signed SIGNATURE ON FILE Carly Chavez MD 01/26/19 1445 -- END OF REPORT Notes Date/Time Note Provider Source 2019-01-22 07:02:00 [id number] [facility] [address] [place] [address] [place] [address] PATIENT NAME: NAIF SINGH ADMIT DATE: 01/22/19 ACCOUNT NO: [id number] ROOM NO: AGE: 38 REPORT TYPE: ENDOSCOPY REPORT SEX: F ADMITTING PHYSICIAN: ATTENDING PHYSICIAN:Derek Garcia MD [facility] Gastroenterology Patient Name: Isaac Owen Attending MD: Derek Garcia MD Procedure Date: 01/22/2019 7:02 AM Date of : 1980 Admit Type: Outpatient Age: 38 Room: Room 2 Gender: Female Note Status: Finalized Procedure: Upper GI endoscopy Pre Procedure Diagnosis: Heartburn Assistants: Derek Garcia MD, Iveth Chapman RN (Nurse), Glenda Aguero, Manager Shell, Shaji Mcarthur Anesthesia: Monitored Anesthesia Care Procedure: Pre-Anesthesia Assessment: - Prior to the procedure, a History and Physical was performed, and patient medications and allergies were reviewed. The patient is competent. The risks and benefits of the procedure and the sedation options and risks were discussed with the patient. All questions were answered and informed consent was obtained. Patient identification and proposed procedure were verified by the physician, the nurse, the anesthesiologist and the radiocommunications technician in the endoscopy suite. Mental Status Examination: alert and oriented. Airway Examination: normal oropharyngeal airway and neck mobility. Respiratory Examination: clear to auscultation. CV Examination: normal. Prophylactic Antibiotics: The patient does not require prophylactic antibiotics. Prior Anticoagulants: The patient has taken no previous anticoagulant or antiplatelet agents. ASA Grade Assessment: III - A patient with severe systemic disease. After reviewing the risks and benefits, the patient was deemed in satisfactory condition to undergo the procedure. The anesthesia plan was to use monitored anesthesia care (MAC). Immediately prior to administration of medications, the patient was re-assessed for adequacy to receive sedatives. The heart rate, respiratory rate, oxygen saturations, blood pressure, adequacy of pulmonary PATIENT NAME: NAIF SINGH ventilation, and response to care were monitored throughout the procedure. The physical status of the patient was re-assessed after the procedure. The benefits, risks, and alternatives to the procedure were discussed and informed consent was obtained from the patient. I've assesed the patient on this date and reviewed the medical history, drug history, and previous anesthesia experience. After obtaining informed consent, the scope was passed under direct vision. Throughout the procedure, the patient's blood pressure, pulse, and oxygen saturations were monitored continuously.s were monitored continuously. The Endoscope was introduced through the mouth, and advanced to the second part of duodenum. The upper GI endoscopy was accomplished without difficulty. The patient tolerated the procedure well. Post Procedure Findings: The examined duodenum was normal. Scattered mild inflammation characterized by erythema was found in the gastric antrum. Biopsies were taken with a cold forceps for histology. Estimated blood loss was minimal. Bilious fluid was found in the gastric body. A 2 cm hiatal hernia was present. LA Grade A (one or more mucosal breaks less than 5 mm, not extending between tops of 2 mucosal folds) esophagitis with no bleeding was found. Biopsies were taken with a cold forceps for histology. Estimated blood loss was minimal. Complications: No immediate complications. Estimated Blood Loss: Post Procedure Diagnosis: - Normal examined duodenum. - Gastritis. Biopsied. - Bilious gastric fluid. - 2 cm hiatal hernia. - LA Grade A reflux esophagitis. Biopsied. Recommendation: - Patient has a contact number available for emergencies. The signs and symptoms of potential delayed complications were discussed with the patient. Return to normal activities tomorrow. Written discharge instructions were provided to the patient. - Resume previous diet. - Continue present medications. - Await pathology results. - Return to my office as previously scheduled. Derek Garcia MD Derek Garcia MD 01/22/2019 7:28:08 AM This report has been signed electronically. PATIENT NAME: NAIF SINGHALY Number of Addenda: 0 Note Initiated On: 01/22/2019 7:02 AM Procedure Date: 01/22/2019 7:02:14 AM at 0728 PATIENT NAME: MARILYN SINGHAbdirashid PEREZ [facility]
--- NOTE | 2024-01-13 18:27 | RAD REPORT ---
EXAM DESCRIPTION: nzxT - Abdomen Pelvis Wo Contrast - 01/13/2024 2:12 pm CLINICAL HISTORY: The patient is 43 years old and is Female; Epigastric abd pain. TECHNIQUE: Axial computed tomography images of the abdomen and pelvis without intravenous contrast. Sagittal and coronal reformatted images were created and reviewed. This CT exam was performed usi ng one or more of the following dose reduction techniques: automated exposure control, adjustment o f the mA and/or kV according to patient size, and/or use of iterative reconstruction technique. COMPARISON: CT Abdomen pelvis 02/25/2022. FINDINGS: LUNG BASES: Unremarkable No mass. No consolidation. ABDOMEN: LIVER: Unremarkable GALLBLADDER AND BILE DUCTS: Cholecystectomy clips noted in the gallbladder fossa. No greater than e xpected ductal dilatation. PANCREAS: Unremarkable No ductal dilation. SPLEEN: Unremarkable No splenomegaly. ADRENALS: Unremarkable No mass. KIDNEYS AND URETERS: Unremarkable No obstructing stones. No hydronephrosis. STOMACH AND BOWEL: Moderate to large colonic stool burden with dense stool demonstrated within the rectosigmoid colon and mild distention of the cecum and ascending colon, without pathologic dilatatio n to suggest obstruction. No mucosal thickening. PELVIS: APPENDIX: No findings to suggest acute appendicitis. BLADDER: Unremarkable No stones. 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 ABDOMEN and PELVIS: INTRAPERITONEAL SPACE: Unremarkable No free air. No significant fluid collection. BONES/JOINTS: Mild levoscoliotic curvature of the lumbar spine. No acute fracture. No dislocation. SOFT TISSUES: Unremarkable VASCULATURE: Unremarkable No abdominal aortic aneurysm. LYMPH NODES: Unremarkable No enlarged lymph nodes. IMPRESSION: 1. Moderate to large colonic stool burden with dense stool demonstrated within the rectosigmoid col on and mild distention of the cecum and ascending colon, without pathologic dilatation to suggest obs truction. Findings highly suggestive of constipation, without evidence of overt obstruction. 2. 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 3. Otherwise, no acute abnormality within the abdomen or pelvis, allowing for lack of intravenous c ontrast. Electronically signed by: Ishaan Pearson MD 01/12/2024 01:37 AM CDT RP Due to temporary technical issues with the PACS/Fluency reporting system, reports are being signed by the in house radiologists without review as a courtesy to insure prompt reporting. The interpreting radiologist is fully responsible for the content of the report.
== END 2024-01-12 03:03 | disposition home or self-care (01) ==
LOC: ER 23:36
DX: R10.13 Epigastric pain (principal); K59.00 Constipation, unspecified; R11.2 Nausea with vomiting, unspecified; Z72.0 Tobacco use
CPT/HCPCS: 85025; 81001; 36415; 83690; 80053; 74176; J2550; J7030

== ENCOUNTER 2024-08-09 10:28 | Day surgery (SDC) | payer OTHER ==
[2024-08-04 11:12] LABS: Anion Gap 5.7 mEq/L (5.0-15.0); Potassium 4.7 mEq/L (3.5-5.1)
--- NOTE | 2024-08-06 14:47 | EKG ---
Test Date: 2024-08-04 Test Time: 09:56:52 Arch Support Maker: ARIANE MEASUREMENT RESULTS: Intervals: Rate: 89 IN: 136 QRSD: 68 QT: 350 QTc: 425 Adrian: P: 40 IN: 136 QRS: 4 T: 32 INTERPRETIVE STATEMENTS: Normal sinus rhythm Septal infarct, age undetermined Possible Lateral infarct, age undetermined Abnormal ECG Compared to ECG 11/01/2023 03:27:20 No significant changes Electronically Signed On 08-06-24 14:42:41 CDT by Good Bolton
[2024-08-09] MEDS: Ringers Lactate 1,000 ML IV ONE (11:05)
[2024-08-09] MEDS ORDERED: LIDOCAINE 1% MPF 5 ML VIAL ONE (11:13)
[2024-08-09] MEDS ORDERED: propofoL 200 MG/20 ML VIAL IV ONE (11:13)
[2024-08-09 14:22] VITALS: O2SAT 100
[2024-08-09 14:23] VITALS: BP 115/74; TEMP 98
== END 2024-08-09 12:23 | disposition home or self-care (01) ==
LOC: OR 10:28
PROVIDERS: ATTEND Surgery
PROC: 0DB68ZX Excision of Stomach, Via Natural or Artificial Opening Endoscopic, Diagnostic (ICD-10-PCS; 2024-08-09)
PROC: 0DB58ZX Excision of Esophagus, Via Natural or Artificial Opening Endoscopic, Diagnostic (ICD-10-PCS; 2024-08-09)
PROC: 0DB48ZX Excision of Esophagogastric Junction, Via Natural or Artificial Opening Endoscopic, Diagnostic (ICD-10-PCS; 2024-08-09)
PROC: 0DB98ZX Excision of Duodenum, Via Natural or Artificial Opening Endoscopic, Diagnostic (ICD-10-PCS; principal; 2024-08-09 12:00)
DX: K21.9 Gastro-esophageal reflux disease without esophagitis (principal); R10.13 Epigastric pain; K44.9 Diaphragmatic hernia without obstruction or gangrene; K29.50 Unspecified chronic gastritis without bleeding
CPT/HCPCS: 93005; 80048; 36415; 88312; 88305; 43239; J2704; J2003; J7120

== ENCOUNTER 2024-08-30 12:54 | Emergency (ER) | payer OTHER ==
--- OUTSIDE RECORDS SUMMARY | 2024-08-30 13:00 | XMS REPORT | Continuity of Care Document ---
Author Name Unknown Address [address] [place] [address] [facility] Address [address] [place] [address] Care Team Providers Care Cruise Agent Name Role Phone PCP, PATIENT DOES NOT HAVE A Primary Care Physic theodore Unavailable Alisa Szymanski Attending Clinician Unavail able No, PCP Attending Clinician Unavailable COLE GARCIA Attending Clinician UnavailJOSE ANTONIO Duarte Attending Clinician Unavailable LAB53 Attending Clinician Unavailable LAB45 Attending Clinician Unavailable GC_GCBZW_Rafita_Dede Attending Clinician UnavailBAYRON Tamayo Attending Clinician UnavailBAYRON Tamayo Attending Clinician UnavailCHAYA Jacome Attending Clinician Unavailable Chaya Knight MD Attending Clinician [phone] Luis E Aquino Admitting Clinician Unavailable GC_GCBZW_Kadiyala_S Admitting Clinician Unavaila anthony Payers Payer Name Policy Type Policy Number Effective Date Expirati on Date Source [employer] 2 [id number] 00:00:00 [facility] [id number] [facility] [id number] [facility] [id number] 00:00:00 2021 00:00:00 Problems Condition Name Condition Details Condition Category Status Onset Date Resolution Date Last Treatment Date Treating Clinician Comments Source Menopausal syndrome Menopausal Syndrome Problem Active 06-23 00:00: 00 [facility] Pain of left breast Pain of Left Breast Problem Active 06-23 00:00: 00 [facility] Excessive and frequent menstruati on Excessive and Frequent Menstruati on Problem Active 8-03 00:00: 00 [facility] Irregular periods Irregular Periods Problem Active 7-21 00:00: 00 [facility] Contracept ion care education Contracept ion Care Education Problem Active 3-20 00:00: 00 [facility] Screening mammograph y Screening Mammograph y Problem Active 3-20 00:00: 00 [facility] Gynecologi alexx examinatio n abnormal Gynecologi alexx Examinatio n Abnormal Problem Active 3-20 00:00: 00 [facility] Breakthrou gh bleeding with IUD Breakthrou gh bleeding with IUD Disease Active - 00:00: 00 [facility] Smoker Smoker Disease Active 10-02 00:00: 00 [facility] Presence of of 13.5 mg levonorges trel-relea sing intrauteri ne device (IUD) Presence of of 13.5 mg levonorges trel-relea sing intrauteri ne device (IUD) Disease Active 2016-05 00:00: 00 [facility] Morbid obesity Morbid obesity Disease Active 2016-05 00:00: 00 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 Obesity Obesity Disease Active 3 00:00: 00 [facility] Hiatal hernia Hiatal hernia Disease Active 08-17 00:00: 00 [facility] Gestationa l diabetes mellitus Gestationa l diabetes mellitus Disease Active 12-12 00:00: 00 [facility] Allergies, Adverse Reactions, Alerts Allergy Name Allergy Type Status Severity Reaction(s) Onset Date Inactive Date Treating Clinician Comments Source azithrom ycin DA Active U 01-21 00:00: 00 [facility] Azithrom ycin Propensi ty to adverse reaction s to drug Active Rash 12-12 00:00: 00 [facility] AZITHROM YCIN DRUG INGREDI Active Rash 12-12 00:00: 00 [facility] Social History Social Habit Start Date Stop Date Quantity Comments Source ASSERTION Not Susan Zavaleta - External Sexual orientation K rachell Zavaleta - External History of tobacco use Cigarette Smoker Susan jaquez - External History SDOH Alcohol Std Drinks [facility] History SDOH Alcohol Binge [facility] Exposure to SARS-CoV-2 (event) Not sure [facility] Alcoholic beverage intake 2024-07-13 00:00:00 2024-07-13 00:00:00 Susan Zavaleta - External History of Social function 2024-07-13 00:00:00 2024-07-13 00:00:00 Susan Cedeno External Alcohol Comment 2024-06-11 00:00:00 2024-06-11 00:00:00 rare Susan Zavaleta - External Tobacco use and exposure 2024-06-11 00:00:00 2024-06-11 00:00:00 Smokeless tobacco non-user Susan Zavaleta - External Tobacco Comment 2024-06-11 00:00:00 2024-06-11 00:00:00 2 cigs per day Susan Zavaleta - External Sex 2024-05-27 11:19:48 2024-05-27 11:19:48 Female (finding) Susan Simms Alcohol intake 2021-07-19 00:00:00 2021-07-19 00:00:00 0 /d [facility] History SDOH Alcohol Frequency 2021-07-19 00:00:00 2021-07-19 00:00:00 1 [facility] Cigarettes smoked current (pack per day) - Reported 2017-10-02 00:00:00 2017-10-02 00:00:00 [facility] Sex assigned at 1980 00:00:00 1980 00:00:00 Susan Simms Smoking Status Start Date Stop Date Source Heavy Tobacco Smoker [facility] Occasional tobacco smoker 2024-06-11 00:00:00 Susan Simms Current every day smoker 2017-10-02 00:00:00 [facility] Medications Ordered Medication Name Filled Medication Name Start Date Stop Date Current Medication? Ordering Clinician Indication Dosage Frequency Signature (SIG) Comments Components Source Cyclobenzap rine HCl 10 MG oral Tablet 07-13 14:38: 15 Yes 10mg Q.[id number] 3D Take 1 tablet (10 mg total) by mouth 3 times daily as needed for muscle spasms. Susan santamaria Pseudoephed rine-Naprox en Na (Aleve-D Sinus & Cold) 120-220 MG oral Tablet 12 Hour Sustained Release 18 14:38: 15 Yes Take by mouth. Susan santamaria Terbinafine HCl 250 MG oral Tablet 07-13 00:00: 00 09-12 04:59 :00 Yes [id number] 250mg QD Take 1 tablet (250 mg total) by mouth daily. Susan santamaria Cyclobenzap rine HCl 10 MG oral Tablet 07-07 13:35: 54 Yes 10mg Q.[id number] 3D Take 1 tablet (10 mg total) by mouth 3 times daily as needed for muscle spasms. Susan santamaria Pseudoephed rine-Naprox en Na (Aleve-D Sinus & Cold) 120-220 MG oral Tablet 12 Hour Sustained Release 07-07 13:35: 54 Yes Take by mouth. Susan santamaria Cyclobenzap rine HCl 10 MG oral Tablet 06-11 12:26: 21 Yes 10mg Q.[id number] 3D Take 1 tablet (10 mg total) by mouth 3 times daily as needed for muscle spasms. Susan santamaria Pseudoephed rine-Naprox en Na (Aleve-D Sinus & Cold) 120-220 MG oral Tablet 12 Hour Sustained Release 06-11 12:26: 21 Yes Take by mouth. Susan santamaria Clotrimazol e-Betametha sone 1-0.05 % apply externally Cream 06-11 00:00: 00 Yes [id number] APPLY TO RIGHT HEEL TWICE DAILY.. Susan santamaria Ciclopirox 8 % apply externally Solution 06-11 00:00: 00 05-14 05:59 :00 Yes [id number] Apply to affected toenails once daily. File toenails with flexible emery board once a week and clean with nail latvian remover while using medication .. Susan santamaria Terbinafine HCl 250 MG oral Tablet 06-11 00:00: 00 07-12 05:59 :00 Yes [id number] 250mg QD Take 1 tablet (250 mg total) by mouth daily. Susan santamaria Gabapentin 300 MG oral Capsule 06-07 00:00: 00 Yes 300mg 1 capsule (300 mg total). Susan santamaria Zolpidem Tartrate 10 MG oral Tablet 06-07 00:00: 00 Yes take one (1) tablet by mouth at bedtime as needed.. Susan santamaria Montelukast (SINGULAIR) 10 MG oral Tablet tablet 2023-05 00:00: 00 Yes 10mg QD Take 1 tablet (10 mg total) by mouth daily. Susan santamaria TAKE ONE (1) TABLET(S) BY MOUTH ONCE [...] A DAY. 01-21:00: 00 No 300 TAKE 1 TAB 4 TIMES A DAY NEEDED 01-08 00:00: 00 No 50 TAKE 1 TABLET TWICE DAILY WITH FOOD. 01-08 00:00: 00 No [id number] TAKE 1 TAB 4 TIMES A DAY NEEDED 01-08 00:00: 00 No 50 TAKE 1 TABLET TWICE DAILY WITH FOOD. 01-08 00:00: 00 No [id number] TAKE 1 TAB 4 TIMES A DAY NEEDED 01-08 00:00: 00 No 50 TAKE 1 TABLET TWICE DAILY WITH FOOD. 01-08 00:00: 00 No [id number] TAKE 1 TAB 4 TIMES A DAY NEEDED 01-08 00:00: 00 No 50 TAKE 1 TABLET TWICE DAILY WITH FOOD. 01-08 00:00: 00 No [id number] TAKE 1 TAB 4 TIMES A DAY NEEDED 01-08 00:00: 00 No 50 TAKE 1 TABLET TWICE DAILY WITH FOOD. 01-08 00:00: 00 No [id number] TAKE 1 TAB 4 TIMES A DAY NEEDED 01-08 00:00: 00 No 50 TAKE 1 TABLET TWICE DAILY WITH FOOD. 01-08 00:00: 00 No [id number] TAKE 1 TABLET TWICE DAILY WITH FOOD. 01-03 00:00: 00 No [id number] TAKE 1 TABLET TWICE DAILY WITH FOOD. 01-03 00:00: 00 No [id number] TAKE 1 TABLET TWICE DAILY WITH FOOD. 01-03 00:00: 00 No [id number] TAKE 1 TABLET TWICE DAILY WITH FOOD. 01-03 00:00: 00 No [id number] TAKE 1 TABLET TWICE DAILY WITH FOOD. 01-03 00:00: 00 No [id number] TAKE 1 TABLET TWICE DAILY WITH FOOD. 01-03 00:00: 00 No [id number] TAKE 1 TABLET TWICE DAILY WITH FOOD. 01-03 00:00: 00 No [id number] metroNIDAZO LE 500 mg tablet 07-30 00:00: 00 08-07 04:59 :00 No [id number] 500mg Take 1 tablet by mouth every 12 (twelve) hours for [address] [facility] fluconazole 150 mg tablet 07-30 00:00: 00 07-31 05:59 :00 No [id number] 150mg Take 1 tablet by mouth once now for [address] [facility] metroNIDAZO LE 500 mg tablet 07-20 00:00: 00 07-21 05:59 :00 No [id number] 2000mg Take 4 tablets by mouth once now for 1 dose. Do not drink alcohol while taking this medication . [facility] acetaminoph en (TYLENOL) 325 mg tablet 07-19 15:45: 13 07-19 00:00 :00 No Take by mouth every 6 (six) hours as needed. [facility] naproxen sodium (ALEVE ORAL) 07-19 15:45: 04 07-19 00:00 :00 No Take by mouth. [facility] GABAPENTIN ORAL 07-19 14:34: 50 Yes Take by mouth. [facility] pantoprazol e 40 mg EC tablet 06-27 00:00: [address] [facility] phentermine 37.5 mg tablet 07-25 00:00: 00 07-19 00:00 :[address] [facility] zolpidem (AMBIEN) 10 mg tablet 07-14 00:00: 00 Yes [facility] Liletta 20.4 mcg/24 hr (up to 8 years) 52 mg intrauterin e device Take 1 device by intrauterin e route. Liletta 20.4 mcg/24 hr (up to 8 years) 52 mg intrauterin e device Take 1 device by intrauterin e route. No 1device (s) Liletta 20.4 mcg/24 hr (up to 8 years) 52 mg intrauteri ne device Take 1 device by intrauteri ne route. [facility] 2 % topical ointment APPLY TO AFFECTED AREA (ARM AND ABDOMEN)THR EE TIMES A DAY. mupirocin 2 % topical ointment APPLY TO AFFECTED AREA (ARM AND ABDOMEN)THR EE TIMES A DAY. No mupirocin 2 % topical ointment APPLY TO AFFECTED AREA (ARM AND ABDOMEN)TH REE TIMES A DAY. [facility] Vital Signs Vital Name Observation Time Observation Value Comments S ource Body height 2024-07-13 20:35:00 149.9 cm Yelena ey Seybold - External Body weight 2024-07-13 20:35:00 81.647 kg Yelena ey Seybold - External BMI 2024-07-13 20:35:00 36.36 kg/m2 Yelena ey Seybold - External BP Systolic 2024-06-23 00:00:00 133 mm[Hg] [facility] Height 2024-06-23 00:00:00 60 [in_i] [facility] Body Weight 2024-06-23 00:00:00 174.2 [lb_av] [facility] BMI (Body Mass Index) 2024-06-23 00:00:00 34 kg/m2 [facility] BP Diastolic 2024-06-23 00:00:00 88 mm[Hg] [facility] Body height 2024-06-11 18:19:00 149.9 cm Yelena ey Seybold - External Body weight 2024-06-11 18:19:00 80.287 kg Yelena ey Seybold - External BMI 2024-06-11 18:19:00 35.75 kg/m2 Yelena ey Seybold - External Systolic blood pressure 2021-07-19 20:32:00 138 mm[Hg] [facility] Diastolic blood pressure 2021-07-19 20:32:00 92 mm[Hg] [facility] Heart rate 2021-07-19 20:32:00 73 /min [facility] Body temperature 2021-07-19 20:32:00 36.72 Tabitha [facility] Respiratory rate 2021-07-19 20:32:00 18 /min [facility] Body height 2021-07-19 20:32:00 154.9 cm [facility] Body weight 2021-07-19 20:32:00 90.039 kg [facility] BMI 2021-07-19 20:32:00 37.51 kg/m2 [facility] BP Systolic 2022-04-30 16:59:00 127 mm[Hg] BP [...] Heart Rate 2022-01-03 09:46:00 77.00 /min Procedures Procedure Date / Time Performed Performing Clinicia n Source MAMMO, screening, digital, bilateral 2024-06-23 00:00:00 [facility] Cholecystectomy (Gallbladder) [facility] Plan of Care Planned Activity Planned Date Details Comments Source Goal Plan of Care Note [code = 72731-2] Goal Plan of Care Note [code = 64661-8] Goal Plan of Care Note [code = 99268-0] Goal Plan of Care Note [code = 46368-2] Goal Plan of Care Note [code = 55556-5] Goal Plan of Care Note [code = 40524-2] Goal Plan of Care Note [code = 86106-2] Goal Plan of Care Note [code = 20421-8] Goal Plan of Care Note [code = 07276-7] Goal Plan of Care Note [code = 49806-9] Goal Plan of Care Note [code = 92240-3] Goal Plan of Care Note [code = 21918-9] Goal Plan of Care Note [code = 08174-8] Goal Plan of Care Note [code = 19793-9] Goal Plan of Care Note [code = 20784-0] Goal Plan of Care Note [code = 32690-9] Goal Plan of Care Note [code = 78347-4] Goal Plan of Care Note [code = 55136-9] Goal Plan of Care Note [code = 99456-8] Goal Plan of Care Note [code = 71034-5] Goal Plan of Care Note [code = 65634-1] Goal Plan of Care Note [code = 83235-1] Goal Plan of Care Note [code = 97851-6] Goal Plan of Care Note [code = 66153-7] Goal Plan of Care Note [code = 62962-3] Goal Plan of Care Note [code = 47324-2] Goal Plan of Care Note [code = 44706-8] Goal Plan of Care Note [code = 04802-4] Goal Plan of Care Note [code = 61470-4] Goal Plan of Care Note [code = 10869-8] Goal Plan of Care Note [code = 28769-6] Goal Plan of Care Note [code = 38541-7] Goal Plan of Care Note [code = 55853-5] Goal Plan of Care Note [code = 58386-2] Goal Plan of Care Note [code = 60957-7] Goal Plan of Care Note [code = 55342-5] Goal Plan of Care Note [code = 62510-2] Goal Plan of Care Note [code = 26900-3] Goal Plan of Care Note [code = 73379-5] Goal Plan of Care Note [code = 20537-3] Goal Plan of Care Note [code = 57123-5] Goal Plan of Care Note [code = 01817-6] Goal Plan of Care Note [code = 10797-7] Goal Plan of Care Note [code = 26850-2] Goal Plan of Care Note [code = 04160-9] Goal Plan of Care Note [code = 94616-8] Goal Plan of Care Note [code = 05908-0] Goal Plan of Care Note [code = 49182-2] Goal Plan of Care Note [code = 86023-7] Goal Plan of Care Note [code = 94152-6] Goal Plan of Care Note [code = 31456-7] Goal Plan of Care Note [code = 30454-7] Goal Plan of Care Note [code = 92687-6] Goal Plan of Care Note [code = 94525-5] Goal Plan of Care Note [code = 95856-7] Goal Plan of Care Note [code = 07342-1] Goal Plan of Care Note [code = 55853-5] Goal Plan of Care Note [code = 88149-6] Encounters Start Date/Time End Date/Time Encounter Type Admission Type Attending [facility] Facility Care Department Encounter ID Source 2024-08-25 15:10:01 Outpatient Alisa Fleming [facility] [id number] [place] [facility] 2024-08-23 10:46:00 Outpatient Alisa Fleming [facility] [id number] [place] [facility] 2024-06-28 14:11:01 Outpatient Sindy, FADIA [facility] [id number] [place] [facility] 2024-09-21 13:00:00 2024-09-21 13:00:00 Outpatient COLE GARCIA [id number] Susan [facility] 2024-09-21 09:30:00 2024-09-21 09:30:00 Outpatient JOSE ANTONIO PARIKH [id number] Susan [facility] 2024-08-23 10:15:00 2024-08-23 10:15:00 Outpatient JOSE ANTONIO PARIKH [id number] Susan [facility] 2024-08-19 13:15:00 2024-08-19 13:15:00 Outpatient LAB53 SUSAN SUSAN [id number] [facility] 2024-08-19 12:30:00 2024-08-19 12:30:00 Outpatient SUSAN SUSAN [id number] [facility] 2024-08-03 10:15:00 2024-08-03 10:15:00 Outpatient JLJOSE ANTONIO SUSAN [facility]OW[facility] [id number] [facility] 2024-07-21 09:00:00 2024-07-21 09:00:00 Outpatient SUSAN CROWLEY [id number] [facility] 2024-07-13 14:40:00 2024-07-13 14:40:00 Outpatient JOSE COLEAYDIN CROWLEY [id number] Susan [facility] 2024-07-13 00:00:00 2024-07-13 00:00:00 Outpatient JL, JOSE ANTONIO CROWLEY [id number] [facility] 2024-07-07 14:15:00 2024-07-07 14:15:00 Outpatient LAB45 SUSAN SUSAN [id number] [facility] 2024-07-07 13:45:00 2024-07-07 13:45:00 Outpatient JL, JOSE ANTONIO SUSAN CROWLEY [id number] [facility] 2024-06-23 00:00:00 2024-06-23 00:00:00 Sandra Wilcox, [employer]: [address], [place] [address], [place] [address] , Ph. [facility] - GC_GCBZW_[facility]* [id number] [facility] 2024-06-11 12:30:00 2024-06-11 12:30:00 Outpatient JOSEАНДРЕЙCOLEAYDIN CROWLEY [id number] [facility] 2023-03-29 00:00:00 2023-03-29 00:00:00 Outpatient GC_GCBZW_Ka daytonyala_S [facility] [id number] [facility] 2023-03-23 00:00:00 2023-03-23 00:00:00 Outpatient GC_GCBZW_Ka diyala_S PRIV PRIV [id number] [facility] 2023-03-01 00:00:00 2023-03-01 00:00:00 Outpatient GC_GCBZW_Ka diyala_S PRIV PRIV [id number] [facility] 2023-02-01 00:00:00 2023-02-01 00:00:00 Outpatient GC_GCBZW_Ka diyala_S PRIV PRIV [id number] [facility] 2022-12-31 00:00:00 2022-12-31 00:00:00 Outpatient GC_GCBZW_Ka diyala_S PRIV PRIV [id number] [facility] 2022-12-31 00:00:00 2022-12-31 00:00:00 Outpatient GC_GCBZW_Ka diyala_S PRIV PRIV [id number] [facility] 2022-12-25 00:00:00 2022-12-25 00:00:00 Outpatient GC_GCBZW_Ka diyala_S PRIV PRIV [id number] [facility] 2022-12-19 00:00:00 2022-12-19 00:00:00 Outpatient GC_GCBZW_Ka diyala_S PRIV PRIV [id number] [facility] 2022-12-19 00:00:00 2022-12-19 00:00:00 Outpatient GC_GCBZW_Ka diyala_S PRIV PRIV [id number] [facility] 2022-12-14 00:00:00 2022-12-14 00:00:00 Outpatient GC_GCBZW_Ka diyala_S PRIV PRIV [id number] [facility] 2022-12-12 00:00:00 2022-12-12 00:00:00 Outpatient GC_GCBZW_Ka diyala_S PRIV PRIV [id number] [facility] 2022-12-12 00:00:00 2022-12-12 00:00:00 Outpatient GC_GCBZW_Ka diyala_S [facility] [id number] [facility] 2022-07-22 10:00:00 2022-07-22 10:00:00 Outpatient CHAYA BORGES [facility] [id number] [facility] 2022-07-22 10:00:00 2022-07-22 10:00:00 Outpatient CHAYA BORGES [facility] [id number] [facility] 2022-04-30 16:39:19 2022-04-30 16:39:19 Outpatient [facility] [id number] Richard Panchal 2022-04-30 00:00:00 2022-04-30 00:00:00 Outpatient Visit [id number] 2022-02-04 00:00:00 2022-02-04 00:00:00 Outpatient Visit [id number] 2022-01-29 00:00:00 2022-01-29 00:00:00 Outpatient Visit [id number] 2022-01-15 00:00:00 2022-01-15 00:00:00 Outpatient Visit [id number] 2022-01-14 00:00:00 2022-01-14 00:00:00 Outpatient Visit [id number] 2022-01-08 00:00:00 2022-01-08 00:00:00 Outpatient Visit [id number] 2022-01-03 00:00:00 2022-01-03 00:00:00 Outpatient Visit [id number] 2021-08-07 13:30:00 2021-08-07 13:30:00 Outpatient CHAYA BORGES [facility] [id number] [facility] 2021-08-07 13:30:00 2021-08-07 13:30:00 Outpatient Brittnee KNIGHT CHAYA [facility] [id number] [facility] 2021-08-06 00:00:00 2021-08-06 00:00:00 Outpatient Brittnee KNIGHT CHAYA [facility] [id number] [facility] 2021-07-30 00:00:00 2021-07-30 00:00:00 [facility] [id number] [facility] 2021-07-30 00:00:00 2021-07-30 00:00:00 Case Management Dominguez [facility] [id number] [facility] 2021-07-20 00:00:00 2021-07-20 00:00:00 Case Management Chaya Knight [facility] [id number] [facility] 2021-07-19 14:00:00 2021-07-19 15:14:29 Office Visit Chaya Knight [facility] [id number] [facility] 2021-07-19 14:00:00 2021-07-19 15:14:29 Outpatient R CHAYA KNIGHT [facility] [id number] [facility] 2021-07-19 14:00:00 2021-07-19 15:14:29 Outpatient R CHAYA KNIGHT [facility] [id number] [facility] 2021-07-19 14:00:00 2021-07-19 14:00:00 Outpatient R CHAYA KNIGHT [facility] [id number] [facility] 2020-08-17 16:00:00 2020-08-17 16:00:00 Outpatient R [facility] [id number] [facility] Results Test Description Test Time Test Comments Results Result Co mments Source SURGICAL SPECIMENS 2019-01-26 14:45:00 --RUN DATE: 01/26/19 Zulay IRELAND *LIVE* PAGE 1 RUN TIME: 0215 Specimen Inquiry RUN USER: INTERFACE --PATIENT: NAIF SINGH LOC: YENNY U #: [id number] AGE/SX: 38/F ROOM: RE01/22/19[facility] DR: Derek Garcia MD : 79 BED: DIS: STATUS: [facility]P [facility] TLOC: -- SPEC #: [id number] RECD: 01/22/19 STATUS: [facility] #: [id number] JONG: 01/22/19 [facility] DR: Derek Garcia MD ENTERED: 01/22/19 SP [...] 1438 Specimen Inquiry RUN USER: INTERFACE --PATIENT: SINGHNAIF PEREZ LOC: YENNY U #: [id number] AGE/SX: 38/F ROOM: RE01/22/19REG DR: Derek Garcia MD : 79 BED: DIS: STATUS: [facility] TLOC: -- SPEC #: [id number] RECD: 01/22/19 STATUS: [facility] RE #: [id number] JONG: 01/22/19 [facility] DR: Derek Garcia MD ENTERED: 01/22/19 SP [...] [place] ADDENDUM FINDINGS Addendum #1 Entered: 01/27/19-9798 This addendum is being issued to comment [...] Specimen Inquiry RUN USER: INTERFACE --SPEC #: [id number] PATIENT: NAIF SINGHALY #[id number] (Continued)------- GROSS DESCRIPTION A-ANTRUM: Two pieces of tissue which measure 2 mm each. Entirely submitted in a single cassette. B-GE JUNCTION: Three pieces of tissue which measure 2-3 mm each. Entirely submitted in a single cassette. RAB/eb MICROSCOPIC DESCRIPTION Microscopic performed.-------- Signed SIGNATURE ON FILE Carly Chavez MD 01/26/19 1445 -- END OF REPORT Notes Date/Time Note Provider Source 2024-07-13 14:38:19 Chief Complaint Patient presents with Follow-up F/u on nail fungus treatment labs in chart [phone] (home) [phone] (work) Gretta Cabrera MA [facility] 2024-06-11 12:26:25 Chief Complaint Patient presents with Nail Problem Nail fungus both feet would like to discuss treatment Skin/nail Abnormality Pt also c/o rash of some sort on right foot states it itches really bad would like to discuss [phone] (home) [phone] (work) Gretta Cabrera MA [facility] 2019-01-22 07:02:00 [id number] [place] [address] PATIENT NAME: NAIF SINGH ADMIT DATE: 01/22/19 ACCOUNT NO: [id number] ROOM NO: AGE: 38 REPORT TYPE: ENDOSCOPY REPORT SEX: F ADMITTING PHYSICIAN: ATTENDING PHYSICIAN:Derek Garcia MD [facility] Patient Name: Isaac Owen Attending MD: Derek Garcia MD Procedure Date: 01/22/2019 7:02 AM Date of : 1980 Admit Type: Outpatient Age: 38 Room: Room 2 Gender: Female Note Status: Finalized Procedure: Upper GI endoscopy Pre Procedure Diagnosis: Heartburn Assistants: Derek Garcia MD, Iveth Chapman, RN (Nurse), Glenda Aguero, Shoe Repairer Apprentice, Shaji Mcarthur Anesthesia: Monitored Anesthesia Care Procedure: [...] physician, the nurse, the anesthesiologist and the orthotic technician in the endoscopy suite. Mental Status [...] has been signed electronically. PATIENT NAME: NAIF SINGH Number of Addenda: 0 Note Initiated On: 01/22/2019 7:02 AM Procedure Date: 01/22/2019 7:02:14 AM at 0728 PATIENT NAME: NAIF SINGH [facility]
[2024-08-30] MEDS ORDERED: HYDROCODONE/APAP 5/325 MG TAB ONE (13:13)
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
[2024-08-30 14:31] VITALS: BP 133/89; TEMP 98.4; O2SAT 100
== END 2024-08-30 14:24 | disposition home or self-care (01) ==
LOC: ER 12:54
DX: S30.1XXA Contusion of abdominal wall, initial encounter (principal); R07.9 Chest pain, unspecified; V49.40XA Driver injured in collision with unspecified motor vehicles in traffic accident, initial encounter; F17.210 Nicotine dependence, cigarettes, uncomplicated
CPT/HCPCS: 71250; 74176; 99284